=== PATIENT | male | born 1995 | race Caucasian/White ===

== ENCOUNTER → 2017-11-01 | Outpatient (CLI) | payer OTHER ==
[2017-08-07 10:42] VITALS: BMI 17.1
[~2017-11-01] MED LIST: BLOO-1511 MC; BLOO1STR16 MC; CHOL500016 PO; FLU60SYR30 IM ONLY; INSU100I30 SQ; INSU100I35 SQ; LANI SUBQ
== END ==
LOC: AMB 19:34
PROVIDERS: ATTEND Nurse Practitioner
DX: E11.9 Type 2 diabetes mellitus without complications (principal); E87.5 Hyperkalemia; R53.1 Weakness; R11.0 Nausea
CPT/HCPCS: A0425; A0427

== ENCOUNTER → 2017-11-20 | Outpatient (CLI) | payer OTHER ==
[2017-08-07 10:42] VITALS: BMI 17.1
[2017-11-20 10:22] LABS: PLATELET COUNT, AUTOMATED 316 K/uL (150-450)
== END ==
LOC: LAB 09:47
PROVIDERS: ATTEND Emergency Medicine
DX: E10.9 Type 1 diabetes mellitus without complications (principal)
CPT/HCPCS: 36415; 81001; 82040; 82247; 82310; 82374; 82435; 82565; 82947; 83036; 84075; 84132; 84155; 84295; 84450; 84460; 84520; 85025

== ENCOUNTER 2017-12-15 19:09 | Emergency (ER) | payer OTHER ==
[2017-08-07 10:42] VITALS: Ht 180.3 cm; Wt 49.9 kg
[~2017-12-15] VITALS: Ht 180.3 cm; Wt 49.9 kg
--- NOTE | 2017-12-15 19:20 | ER Report ---
History and Physical Time Seen By MD: 19:20 Hx. of Stated Complaint: SORE THROAT, DARK BLACK STOOL/DIARRHEA, NAUSEA, KIDNEY PAIN, HEADACHES HPI/ROS CHIEF COMPLAINT: Flulike symptoms, elevated blood sugar HISTORY OF PRESENT ILLNESS: 22-year-old male patient presents to emergency room with complaint of flulike symptoms and elevated blood sugar. Patient states that he has not been feeling well for the past 4 days. He states that he's not had any fevers but has had a persistent cough, body aches and chills. He states that he has not taken any medication for this. Patient also states that he is diabetic and his blood sugars been running high. He states that he had his blood sugar checked prior to coming in and the glucometer read HI. Patient states that he typically has been running in the 200s but recently is not been able to keep his blood sugar down. He denies having any nausea, vomiting or diarrhea. He states he's been doing a good job of staying hydrated. He states that he has significant headache. He states he rates it an 8 out of 10. He states that this is the worse headache that he's ever had. He states it does not seem to be going away. REVIEW OF SYSTEMS: Respiratory: As noted above. Cardiovascular: No chest pain, no palpitations. Gastrointestinal: No vomiting, no abdominal pain. Musculoskeletal: No back pain. Allergies: Coded Allergies: No Known Drug Allergies (Unverified , 11/01/17) Home Meds Active Scripts Insulin Glargine,Hum.rec.anlog (LANTUS SOLOSTAR) 100 Unit/1 Ml Insuln.pen, 60 UNIT SQ DAILY, #1 BOX 11 Refills Prov:SHIV SHAH MD 11/20/17 Blood Sugar Diagnostic (FREESTYLE LITE TEST STRIPS) 1 Each Strip, 1 EACH MC QID , #3 BOTTLE 11 Refills Prov:SHIV SHAH MD 10/27/17 Insulin Aspart (NOVOLOG FLEXPEN) 100 Unit/1 Ml Insuln.pen, 5-30 UNIT SQ TID, # 20 CART 11 Refills SLIDING SCALE Prov:SHIV SHAH MD 10/10/17 Cholecalciferol (Vitamin D3) (VITAMIN D3) 5,000 Unit Capsule, 5000 UNIT PO DAILY , #90 CAPSULE Prov:SHIV SHAH MD 09/25/17 Past Medical/Surgical History Patient has a past medical history of migraines, murmur, hypertension, type 1 diabetes, hypothyroidism, depression, PTSD. Patient denies any surgical history. Reviewed Nurses Notes: Yes Hx Smoking: Yes Smoking Status: Current: Every Day Smoker Exposure to Second Hand Smoke?: Yes Hx Substance Use Disorder: No Hx Alcohol Use: No Constitutional Vital Sign - Last 24 Hours 12/15/17 12/15/17 12/15/17 12/15/17 19:13 19:14 19:24 19:39 Temp 98.0 Pulse 101 113 97 Resp 20 B/P (MAP) 139/102 139/102 (114) Pulse Ox 92 98 97 O2 Delivery Room Air 12/15/17 12/15/17 12/15/17 12/15/17 19:54 19:58 20:07 20:09 Pulse 94 94 Resp 21 B/P (MAP) 127/86 (100) 125/99 (108) Pulse Ox 97 98 12/15/17 12/15/17 12/15/17 12/15/17 20:24 20:30 20:39 20:54 Pulse 91 95 88 Resp 16 43 16 B/P (MAP) 136/98 (111) Pulse Ox 99 96 97 12/15/17 12/15/17 12/15/17 12/15/17 21:00 21:05 21:20 21:30 Pulse ??? 93 Resp 18 B/P (MAP) 146/95 (112) 114/86 (95) Pulse Ox 96 12/15/17 12/15/17 12/15/17 12/15/17 21:35 21:50 22:00 22:05 Pulse 92 90 87 Resp 14 16 9 B/P (MAP) 126/97 (107) Pulse Ox 96 96 99 Intake and Output 12/15/17 12/15/17 12/16/17 15:00 23:00 07:00 Intake Total 2000 ml Balance 2000 ml Physical Exam General Appearance: The patient is alert, has no immediate need for airway protection and no current signs of toxicity. ENT: Tympanic membranes are pearly-benton, auditory canals are patent, mucous membranes are moist. Respiratory: Chest is non tender, lungs are clear to auscultation. Cardiac: regular rate and rhythm Gastrointestinal: Abdomen is soft and non tender, no masses, bowel sounds normal. Musculoskeletal: Neck: Neck is supple and non tender. Extremities have full range of motion and are non tender. Skin: No rashes or lesions. DIFFERENTIAL DIAGNOSIS: After history and physical exam differential diagnosis was considered for DKA, hyperglycemia, viral syndrome, pneumonia, influenza. Medical Decision Making Data Points Result Diagram: 12/15/17200112/15/172001 Laboratory Hematology Test 12/15/17 19:15 12/15/17 20:02 12/15/17 20:15 12/15/17 21:31 Influenza Virus Type A (PCR) Negative (NEGATIVE) Influenza Virus Type B (PCR) Negative (NEGATIVE) Group A Streptococcus Screen Negative (NEGATIVE) Red Blood Count 5.69 M/uL (4.00-5.60) Mean Corpuscular Volume 79.9 fL (80.0-96.0) Mean Corpuscular Hemoglobin 28.2 pg (26.0-33.0) Mean Corpuscular Hemoglobin Concent 35.3 g/dL (32.0-36.0) Red Cell Distribution Width 12.4 % (11.5-14.5) Mean Platelet Volume 7.5 fL (7.2-11.1) Neutrophils (%) (Auto) 55.3 % (39.4-72.5) Lymphocytes (%) (Auto) 34.8 % (17.6-49.6) Monocytes (%) (Auto) 6.7 % (4.1-12.4) Eosinophils (%) (Auto) 2.2 % (0.4-6.7) Basophils (%) (Auto) 1.0 % (0.3-1.4) Nucleated RBC Relative Count (auto) 0.1 /100WBC Neutrophils # (Auto) 3.1 K/uL (2.0-7.4) Lymphocytes # (Auto) 1.9 K/uL (1.3-3.6) Monocytes # (Auto) 0.4 K/uL (0.3-1.0) Eosinophils # (Auto) 0.1 K/uL (0.0-0.5) Basophils # (Auto) 0.1 K/uL (0.0-0.1) Nucleated RBC Absolute Count (auto) 0.01 K/uL Urine Color Straw Urine Clarity Clear Urine pH 5.0 pH (4.8-9.5) Urine Specific Brutus 1.039 Urine Protein Negative mg/dL (NEGATIVE) Urine Glucose (UA) 500 mg/dL (NEGATIVE) Urine Ketones 20 mg/dL (NEGATIVE) Urine Blood Negative (NEGATIVE) Urine Nitrite Negative (NEGATIVE) Urine Bilirubin Negative (NEGATIVE) Urine Urobilinogen Negative mg/dL (0.2-1.9) Urine Leukocyte Esterase Negative (NEGATIVE) Urine RBC <1 /HPF (0-2/HPF) Urine WBC None /HPF (0-5/HPF) Urine Squamous Epithelial Cells Few /LPF (</=FEW) Urine Bacteria Negative /HPF (NONE-FEW) Urine Mucus None /HPF (NONE-FEW) Sodium Level 132 mmol/L (137-145) Potassium Level 4.1 mmol/L (3.5-5.0) Chloride Level 98 mmol/L (98-107) Carbon Dioxide Level 21 mmol/L (22-30) Blood Urea Nitrogen 16 mg/dl (9-21) Creatinine 0.60 mg/dl (0.66-1.25) Glomerular Filtration Rate Calc > 60.0 Random Glucose 518 mg/dl (75-110) Osmolality 302 mOSM/K (275-295) Calcium Level 9.0 mg/dl (8.4-10.2) Total Bilirubin 1.7 mg/dl (0.2-1.3) Aspartate Amino Transf (AST/SGOT) 19 U/L (0-35) Alanine Aminotransferase (ALT/SGPT) 31 U/L (0-56) Alkaline Phosphatase 135 U/L (0-126) Total Protein 6.5 gm/dl (6.3-8.2) Albumin 3.8 g/dl (3.5-5.0) Urine Opiates Screen Negative Urine Barbiturates Screen Negative Ur Tricyclic Antidepressants Screen Negative Urine Phencyclidine Screen Negative Urine Amphetamines Screen Negative Urine Benzodiazepines Screen Negative Urine Cocaine Screen Negative Urine Cannabinoids Screen Negative Blood Gas Puncture Site Right radial Blood Gas Patient Temperature Unknown DEGREES Arterial Blood pH 7.47 (7.35-7.45) Arterial Blood Partial Pressure CO2 < 25 mmHg (32-37) Arterial Blood Partial Pressure O2 82 mmHg (60-80) Arterial Blood HCO3 18 mmol/L (20-26) Arterial Blood Oxygen Saturation 97 % (92-100) Arterial Blood Base Excess -6.0 mmol/L Bryson Test Acceptable Oxygen Liters/Minute Room air Whole Blood Glucose 247 mg/DL (75-110) Test 12/15/17 22:03 Acetone, Qualitative Negative Chemistry Test 12/15/17 19:15 12/15/17 20:02 12/15/17 20:15 12/15/17 21:31 Influenza Virus Type A (PCR) Negative (NEGATIVE) Influenza Virus Type B (PCR) Negative (NEGATIVE) Group A Streptococcus Screen Negative (NEGATIVE) White Blood Count 5.5 k/uL (4.5-11.0) Red Blood Count 5.69 M/uL (4.00-5.60) Hemoglobin 16.0 g/dL (14.0-18.0) Hematocrit 45.4 % (42.0-52.0) Mean Corpuscular Volume 79.9 fL (80.0-96.0) Mean Corpuscular Hemoglobin 28.2 pg (26.0-33.0) Mean Corpuscular Hemoglobin Concent 35.3 g/dL (32.0-36.0) Red Cell Distribution Width 12.4 % (11.5-14.5) Platelet Count 311 K/uL (150-450) Mean Platelet Volume 7.5 fL (7.2-11.1) Neutrophils (%) (Auto) 55.3 % (39.4-72.5) Lymphocytes (%) (Auto) 34.8 % (17.6-49.6) Monocytes (%) (Auto) 6.7 % (4.1-12.4) Eosinophils (%) (Auto) 2.2 % (0.4-6.7) Basophils (%) (Auto) 1.0 % (0.3-1.4) Nucleated RBC Relative Count (auto) 0.1 /100WBC Neutrophils # (Auto) 3.1 K/uL (2.0-7.4) Lymphocytes # (Auto) 1.9 K/uL (1.3-3.6) Monocytes # (Auto) 0.4 K/uL (0.3-1.0) Eosinophils # (Auto) 0.1 K/uL (0.0-0.5) Basophils # (Auto) 0.1 K/uL (0.0-0.1) Nucleated RBC Absolute Count (auto) 0.01 K/uL Urine Color Straw Urine Clarity Clear Urine pH 5.0 pH (4.8-9.5) Urine Specific Brutus 1.039 Urine Protein Negative mg/dL (NEGATIVE) Urine Glucose (UA) 500 mg/dL (NEGATIVE) Urine Ketones 20 mg/dL (NEGATIVE) Urine Blood Negative (NEGATIVE) Urine Nitrite Negative (NEGATIVE) Urine Bilirubin Negative (NEGATIVE) Urine Urobilinogen Negative mg/dL (0.2-1.9) Urine Leukocyte Esterase Negative (NEGATIVE) Urine RBC <1 /HPF (0-2/HPF) Urine WBC None /HPF (0-5/HPF) Urine Squamous Epithelial Cells Few /LPF (</=FEW) Urine Bacteria Negative /HPF (NONE-FEW) Urine Mucus None /HPF (NONE-FEW) Glomerular Filtration Rate Calc > 60.0 Osmolality 302 mOSM/K (275-295) Calcium Level 9.0 mg/dl (8.4-10.2) Total Bilirubin 1.7 mg/dl (0.2-1.3) Aspartate Amino Transf (AST/SGOT) 19 U/L (0-35) Alanine Aminotransferase (ALT/SGPT) 31 U/L (0-56) Alkaline Phosphatase 135 U/L (0-126) Total Protein 6.5 gm/dl (6.3-8.2) Albumin 3.8 g/dl (3.5-5.0) Urine Opiates Screen Negative Urine Barbiturates Screen Negative Ur Tricyclic Antidepressants Screen Negative Urine Phencyclidine Screen Negative Urine Amphetamines Screen Negative Urine Benzodiazepines Screen Negative Urine Cocaine Screen Negative Urine Cannabinoids Screen Negative Blood Gas Puncture Site Right radial Blood Gas Patient Temperature Unknown DEGREES Arterial Blood pH 7.47 (7.35-7.45) Arterial Blood Partial Pressure CO2 < 25 mmHg (32-37) Arterial Blood Partial Pressure O2 82 mmHg (60-80) Arterial Blood HCO3 18 mmol/L (20-26) Arterial Blood Oxygen Saturation 97 % (92-100) Arterial Blood Base Excess -6.0 mmol/L Bryson Test Acceptable Oxygen Liters/Minute Room air Whole Blood Glucose 247 mg/DL (75-110) Test 12/15/17 22:03 Acetone, Qualitative Negative Toxicology Test 12/15/17 20:02 12/15/17 22:03 Urine Opiates Screen Negative Urine Barbiturates Screen Negative Ur Tricyclic Antidepressants Screen Negative Urine Phencyclidine Screen Negative Urine Amphetamines Screen Negative Urine Benzodiazepines Screen Negative Urine Cocaine Screen Negative Urine Cannabinoids Screen Negative Acetone, Qualitative Negative Urinalysis Test 12/15/17 20:02 Urine Color Straw Urine Clarity Clear Urine pH 5.0 pH (4.8-9.5) Urine Specific Brutus 1.039 Urine Protein Negative mg/dL (NEGATIVE) Urine Glucose (UA) 500 mg/dL (NEGATIVE) Urine Ketones 20 mg/dL (NEGATIVE) Urine Blood Negative (NEGATIVE) Urine Nitrite Negative (NEGATIVE) Urine Bilirubin Negative (NEGATIVE) Urine Urobilinogen Negative mg/dL (0.2-1.9) Urine Leukocyte Esterase Negative (NEGATIVE) Urine RBC <1 /HPF (0-2/HPF) Urine WBC None /HPF (0-5/HPF) Urine Squamous Epithelial Cells Few /LPF (</=FEW) Urine Bacteria Negative /HPF (NONE-FEW) Urine Mucus None /HPF (NONE-FEW) EKG/Imaging Imaging HEAD CT: Indication: Persistent headache. Technique: Contiguous axial sections were obtained from the base to the vertex without contrast enhancement. One of the following dose optimization techniques was utilized in the performance of this exam: Automated exposure control; adjustment of the mA and/ or kV according to the patient's size; or use of an iterative reconstruction technique. Specific details can be referenced in the facility's radiology CT exam operational policy. Comparison: None. Findings: There is no evidence of intra-axial or extra-axial hemorrhage. No focal areas of decreased or increased attenuation are identified. There is no evidence of mass, edema, or shift of the midline structures. The size, shape, and configuration of the ventricular system are normal. The skeletal structures are intact and unremarkable. There is no evidence of fracture or other acute deformity. The visualized paranasal sinuses and mastoid air cells are clear. Impression: Unremarkable unenhanced head CT. Report Dictated By: Cholo Lainez MD at 12/15/2017 9:47 PM Report E-Signed By: Cholo Lainez MD at 12/15/2017 9:49 PM CHEST: Indication: Cough. Technique: Frontal and lateral views were obtained. Comparison: None. Skeletal and soft tissue structures: Intact and unremarkable. Heart and mediastinum: Within normal limits. Lung ordaz: Well-expanded and clear. No focal or diffuse opacities. Pleural spaces: Unremarkable. Impression: No acute process. Report Dictated By: Cholo Lainez MD at 12/15/2017 9:35 PM Report E-Signed By: Cholo Lainez MD at 12/15/2017 9:36 PM ED Course/Re-evaluation ED Course Patient was admitted to exam room, history and physical were obtained. Differential diagnoses were considered. A CBC, CMP, urinalysis, drug screen, acetone, osmolality, chest x-ray and CT scan of the head were done. Patient had an elevated blood sugar of 513, urinalysis showed 500 glucose. CBC and CMP were unremarkable except for the elevated blood sugar. An ABG was done which showed the patient was slightly alkalotic. His acetone was moderate initially and his osmolality was 302. Patient was given a liter of normal saline, he also received 10 units of regular insulin IV. Approximately 30 minutes after the insulin his blood sugar was rechecked. He is 247 at that time. Patient received a second liter of normal saline. We will recheck his acetone at that time which was negative. Patient is complaining about headache and so CT scan of the head was done which was negative. Patient was treated with Toradol and on reevaluation patient states he has no headache at this time. Chest x-ray was done which was also negative. I would patient was likely hyperglycemic secondary to stress from a viral illness. I discussed this with the patient and his friends and they verbalized understanding and agreement. We'll go ahead and discharge him home at this time. He is to keep a close eye on his blood sugar for the next several days. He is follow-up with Dr. Shah early next week. Patient verbalized understanding and agreement with plan. Decision to Disposition Date: Dec 15, 2017 Decision to Disposition Time: 22:35 Depart Departure Latest Vital Signs Vital Signs Date Time Temp Pulse Resp B/P (MAP) Pulse Ox O2 Delivery O2 Flow Rate FiO2 12/15/17 22:05 87 9 99 12/15/17 22:00 126/97 (107) 12/15/17 19:13 98.0 Room Air Impression: Primary Impression: Viral syndrome Additional Impressions: Headache Hyperglycemia Condition: Improved Disposition: HOME OR SELF-CARE Referrals: SHIV SHAH MD (PCP) Patient Instructions: Viral Syndrome (ED) Additional Instructions: Increase fluid intake. Get plenty of rest. Limit activity by how you are feeling. Follow up with Dr. Shah early next week. Keep a close eye on your blood sugars. Return to the ER if condition worsens. Continue with your current medications. Problem Qualifiers Additional Impressions: Headache Headache type: unspecified Headache chronicity pattern: acute headache Intractability: not intractable Qualified Codes: R51 - Headache ANJELICA JOEL Dec 15, 2017 19:20
[2017-12-15] MEDS ORDERED: NS(*) 0.9% 1000 ML BAG 1,000 ML IV ONE ×2 (19:29→21:00)
[2017-12-15] MEDS ORDERED: INSU HUM REG 100 U/ML(ER ONLY) 10 ML VIAL IV ONE (20:15)
[2017-12-15 20:16] LABS: PLATELET COUNT, AUTOMATED 311 K/uL (150-450)
[2017-12-15] MEDS ORDERED: INSU HUM REG 100 U/ML(ER ONLY) 10 ML VIAL ONE (20:39)
--- NOTE | 2017-12-15 21:40 | RADIOLOGY IMAGING REPORT ---
FACILITY: [facility] - [place] PATIENT NAME: Zak Wynn : 1995 MR: [id number] V: [id number] EXAM DATE: ORDERING PHYSICIAN: ANJELICA JOEL TECHNOLOGIST: Location: [facility] Patient: Zak Wynn : 1995 Visit/Account:[id number] Date of Sevice: 12/15/2017 CHEST: Indication: Cough. Technique: Frontal and lateral views were obtained. Comparison: None. Skeletal and soft tissue structures: Intact and unremarkable. Heart and mediastinum: Within normal limits. Lung ordaz: Well-expanded and clear. No focal or diffuse opacities. Pleural spaces: Unremarkable. Impression: No acute process. Report Dictated By: Cholo Lainez MD at 12/15/2017 9:35 PM Report E-Signed By: Cholo Lainez MD at 12/15/2017 9:36 PM WSN:[id number]
--- NOTE | 2017-12-15 21:53 | RADIOLOGY IMAGING REPORT ---
[place] [facility] [place] NAME: Zak Wynn : 1995 MR: [id number] V: [id number] EXAM DATE: ORDERING PHYSICIAN: ANJELICA JOEL [place]CHN[place]: [place] [facility] [place] Zak [place] : 1995 Visit/Account:[id number] Date of Sevice: 12/15/[address]: Indication: Persistent headache. Technique: Contiguous axial sections were obtained from the base to the vertex without contrast enhan cement. One of the following dose optimization techniques was utilized in the performance of this exam: Autom ated exposure control; adjustment of the mA and/or kV according to the patient's size; or use of an i terative reconstruction technique. Specific details can be referenced in the facility's radiology CT exam operational policy. Comparison: None. Findings: There is no evidence of intra-axial or extra-axial hemorrhage. No focal areas of decreased or increased attenuation are identified. There is no evidence of mass, edema, or shift of the midline structures. The size, shape, and configuration of the ventricular system are normal. The skeletal st ructures are intact and unremarkable. There is no evidence of fracture or other acute deformity. The visualized paranasal sinuses and mastoid air cells are clear. Impression: Unremarkable unenhanced head CT. Report Dictated By: Cholo Lainez MD at 12/15/2017 9:47 PM Report E-Signed By: Cholo Lainez MD at 12/15/2017 9:49 PM WSN:[id number]
[2017-12-15] MEDS ORDERED: KETOROLAC 30 MG/ML VIAL IVP ONE (21:55)
[2017-12-15 22:00] VITALS: BP 126/97
== END 2017-12-15 22:44 | disposition home or self-care (01) ==
LOC: ER 19:23
DX: B34.9 Viral infection, unspecified (principal); R51 Headache; E10.65 Type 1 diabetes mellitus with hyperglycemia
CPT/HCPCS: 36415; 36416; 36600; 70450; 71046; 80305; 81001; 82009; 82803; 82948; 83930; 85025; 87081; 87502; 87880; 96361; 96374; 96375; 99284; J1815; J1885; J7030; 82040; 82247; 82310; 82374; 82435; 82565; 82947; 84075; 84132; 84155; 84295; 84450; 84460; 84520

== ENCOUNTER 2017-12-21 19:07 | Emergency (ER) | payer OTHER ==
[2017-08-07 10:42] VITALS: Wt 50.8 kg
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
[2017-12-21 20:30] VITALS: BP 132/82
== END 2017-12-21 20:44 | disposition home or self-care (01) ==
LOC: ER 19:14
DX: S06.0X0A Concussion without loss of consciousness, initial encounter (principal); S16.1XXA Strain of muscle, fascia and tendon at neck level, initial encounter; E11.65 Type 2 diabetes mellitus with hyperglycemia; V87.7XXA Person injured in collision between other specified motor vehicles (traffic), initial encounter
CPT/HCPCS: 36416; 70450; 72125; 82948; 99283

== ENCOUNTER 2018-01-08 21:42 | Emergency (ER) | payer OTHER ==
[2017-08-07 10:42] VITALS: Wt 50.8 kg
--- NOTE | 2018-01-08 21:51 | ER Report ---
History and Physical Time Seen By MD: 21:50 HPI/ROS CHIEF COMPLAINT: Vomiting,? DKA HISTORY OF PRESENT ILLNESS: 22-year-old male presents ambulatory to the ER complaining of abdominal pain, vomiting for 6-8 hours. Pain in his legs or his neuropathy is. Patient's wondering if he has DKA or pancreatitis. Patient denies chest pain, shortness of breath, fever or chills. REVIEW OF SYSTEMS: Respiratory: No cough, no dyspnea. Cardiovascular: No chest pain, no palpitations. Gastrointestinal: As above Musculoskeletal: No back pain. Allergies: Coded Allergies: No Known Drug Allergies (Unverified , 11/01/17) Home Meds Active Scripts Ondansetron (ZOFRAN ODT) 4 Mg Tab.rapdis, 4 MG PO Q6H Y for NAUSEA/VOMITING, # 20 TAB.SILVIA Prov:THOMPSON GARDUNO DO 01/08/18 Insulin Glargine,Hum.rec.anlog (LANTUS SOLOSTAR) 100 Unit/1 Ml Insuln.pen, 60 UNIT SQ DAILY, #1 BOX 11 Refills Prov:SHIV PAZ MD 11/20/17 Blood Sugar Diagnostic (FREESTYLE LITE TEST STRIPS) 1 Each Strip, 1 EACH MC QID , #3 BOTTLE 11 Refills Prov:SHIV PAZ MD 10/27/17 Insulin Aspart (NOVOLOG FLEXPEN) 100 Unit/1 Ml Insuln.pen, 5-30 UNIT SQ TID, # 20 CART 11 Refills SLIDING SCALE Prov:SHIV PAZ MD 10/10/17 Cholecalciferol (Vitamin D3) (VITAMIN D3) 5,000 Unit Capsule, 5000 UNIT PO DAILY , #90 CAPSULE Prov:SHIV PAZ MD 09/25/17 Reviewed Nurses Notes: Yes Old Medical Records Reviewed: Yes Hx Smoking: Yes Smoking Status: Current: Every Day Smoker Exposure to Second Hand Smoke?: Yes Hx Substance Use Disorder: No Hx Alcohol Use: Yes Constitutional Vital Sign - Last 24 Hours 01/08/18 01/08/18 01/08/18 01/08/18 22:14 22:14 22:27 22:30 Temp 98.6 Pulse 104 106 Resp 20 B/P (MAP) 119/95 119/95 (103) 126/102 (110) Pulse Ox 93 99 O2 Delivery Room Air 01/08/18 01/08/18 01/08/18 01/08/18 22:42 22:57 23:00 23:12 Pulse 104 106 98 B/P (MAP) 126/97 (107) Pulse Ox 97 97 99 01/08/18 01/08/18 01/08/18 01/08/18 23:17 23:30 23:32 23:47 Pulse 97 107 109 B/P (MAP) 139/107 (118) Pulse Ox 97 97 97 01/09/18 00:00 B/P (MAP) 130/96 (107) Physical Exam General Appearance: The patient is alert, has no immediate need for airway protection and no current signs of toxicity. Mild distress, slightly pale appearing, skin warm and dry HEENT: Pupils equal and round no injection. Oropharynx without redness or exudate, mucous membranes are moist Respiratory: Chest is non tender, lungs are clear to auscultation. Cardiac: regular rate and rhythm Gastrointestinal: Abdomen is soft and non tender, no masses, bowel sounds normal. Musculoskeletal: Neck: Neck is supple and non tender. Extremities have full range of motion and are non tender. Skin: No rashes or lesions. DIFFERENTIAL DIAGNOSIS: After history and physical exam differential diagnosis was considered for abdominal pain including but not limited to appendicitis, cholecystitis,diabetic ketoacidosis, gastroenteritis, food poisoning, gastritis and urinary tract infection. Medical Decision Making Data Points Result Diagram: 01/08/18222401/08/182224 Laboratory Hematology Test 01/08/18 00:00 01/08/18 22:25 Lipase 55 U/L (23-300) Red Blood Count 6.69 M/uL (4.00-5.60) Mean Corpuscular Volume 80.0 fL (80.0-96.0) Mean Corpuscular Hemoglobin 27.4 pg (26.0-33.0) Mean Corpuscular Hemoglobin Concent 34.2 g/dL (32.0-36.0) Red Cell Distribution Width 12.9 % (11.5-14.5) Mean Platelet Volume 7.7 fL (7.2-11.1) Neutrophils (%) (Auto) 51.0 % (39.4-72.5) Lymphocytes (%) (Auto) 41.1 % (17.6-49.6) Monocytes (%) (Auto) 5.9 % (4.1-12.4) Eosinophils (%) (Auto) 1.0 % (0.4-6.7) Basophils (%) (Auto) 1.0 % (0.3-1.4) Nucleated RBC Relative Count (auto) 0.1 /100WBC Neutrophils # (Auto) 3.7 K/uL (2.0-7.4) Lymphocytes # (Auto) 3.0 K/uL (1.3-3.6) Monocytes # (Auto) 0.4 K/uL (0.3-1.0) Eosinophils # (Auto) 0.1 K/uL (0.0-0.5) Basophils # (Auto) 0.1 K/uL (0.0-0.1) Nucleated RBC Absolute Count (auto) 0.01 K/uL Blood Gas Patient Temperature Unknown DEGREES Venous Blood pH 7.35 (7.31-7.41) Venous Blood Partial Pressure CO2 45 mmHg Venous Blood Partial Pressure O2 < 35 mmHg Venous Blood HCO3 25 mmol/L Venous Blood Oxygen Saturation 40 % Venous Blood Base Excess -1 mmol/L Oxygen Liters/Minute Unknown Sodium Level 139 mmol/L (137-145) Potassium Level 3.7 mmol/L (3.5-5.0) Chloride Level 99 mmol/L (98-107) Carbon Dioxide Level 24 mmol/L (22-30) Blood Urea Nitrogen 15 mg/dl (9-21) Creatinine 0.60 mg/dl (0.66-1.25) Glomerular Filtration Rate Calc > 60.0 Random Glucose 331 mg/dl (75-110) Osmolality 305 mOSM/K (275-295) Calcium Level 9.7 mg/dl (8.4-10.2) Total Bilirubin 2.4 mg/dl (0.2-1.3) Aspartate Amino Transf (AST/SGOT) 22 U/L (0-35) Alanine Aminotransferase (ALT/SGPT) 33 U/L (0-56) Alkaline Phosphatase 126 U/L (0-126) Total Protein 8.1 gm/dl (6.3-8.2) Albumin 4.6 g/dl (3.5-5.0) Acetone, Qualitative Negative Chemistry Test 01/08/18 00:00 01/08/18 22:25 Lipase 55 U/L (23-300) White Blood Count 7.3 k/uL (4.5-11.0) Red Blood Count 6.69 M/uL (4.00-5.60) Hemoglobin 18.3 g/dL (14.0-18.0) Hematocrit 53.5 % (42.0-52.0) Mean Corpuscular Volume 80.0 fL (80.0-96.0) Mean Corpuscular Hemoglobin 27.4 pg (26.0-33.0) Mean Corpuscular Hemoglobin Concent 34.2 g/dL (32.0-36.0) Red Cell Distribution Width 12.9 % (11.5-14.5) Platelet Count 327 K/uL (150-450) Mean Platelet Volume 7.7 fL (7.2-11.1) Neutrophils (%) (Auto) 51.0 % (39.4-72.5) Lymphocytes (%) (Auto) 41.1 % (17.6-49.6) Monocytes (%) (Auto) 5.9 % (4.1-12.4) Eosinophils (%) (Auto) 1.0 % (0.4-6.7) Basophils (%) (Auto) 1.0 % (0.3-1.4) Nucleated RBC Relative Count (auto) 0.1 /100WBC Neutrophils # (Auto) 3.7 K/uL (2.0-7.4) Lymphocytes # (Auto) 3.0 K/uL (1.3-3.6) Monocytes # (Auto) 0.4 K/uL (0.3-1.0) Eosinophils # (Auto) 0.1 K/uL (0.0-0.5) Basophils # (Auto) 0.1 K/uL (0.0-0.1) Nucleated RBC Absolute Count (auto) 0.01 K/uL Blood Gas Patient Temperature Unknown DEGREES Venous Blood pH 7.35 (7.31-7.41) Venous Blood Partial Pressure CO2 45 mmHg Venous Blood Partial Pressure O2 < 35 mmHg Venous Blood HCO3 25 mmol/L Venous Blood Oxygen Saturation 40 % Venous Blood Base Excess -1 mmol/L Oxygen Liters/Minute Unknown Glomerular Filtration Rate Calc > 60.0 Osmolality 305 mOSM/K (275-295) Calcium Level 9.7 mg/dl (8.4-10.2) Total Bilirubin 2.4 mg/dl (0.2-1.3) Aspartate Amino Transf (AST/SGOT) 22 U/L (0-35) Alanine Aminotransferase (ALT/SGPT) 33 U/L (0-56) Alkaline Phosphatase 126 U/L (0-126) Total Protein 8.1 gm/dl (6.3-8.2) Albumin 4.6 g/dl (3.5-5.0) Acetone, Qualitative Negative Toxicology Test 01/08/18 22:25 Acetone, Qualitative Negative ED Course/Re-evaluation Clinical Indication for ER IV: Hydration, IV Access ED Course Patient was admitted to an examination room. H&P was done. The differential diagnosis was considered. Patient had a peripheral IV established. Diagnostic bloods were sent off. Patient was treated with IV fluid hydration and Zofran. His diagnostic studies returned with a slightly elevated. Blood glucose of 331. There is no evidence of diabetic ketoacidosis. There is no evidence of pancreatitis. Patient tolerates a by mouth challenge. Be discharged home on Zofran. He is advised to follow-up with primary care. He is frustrated with his previous caregiver and is seeking a new primary care provider. Decision to Disposition Date: Jan 08, 2018 Decision to Disposition Time: 22:59 Depart Departure Latest Vital Signs Vital Signs Date Time Temp Pulse Resp B/P (MAP) Pulse Ox O2 Delivery O2 Flow Rate FiO2 01/09/18 00:00 130/96 (107) 01/08/18 23:47 109 97 01/08/18 22:14 98.6 20 Room Air Impression: Primary Impression: Vomiting Additional Impressions: Abdominal pain DM type 1 (diabetes mellitus, type 1) Condition: Improved Disposition: HOME OR SELF-CARE Referrals: SHIV PAZ MD (PCP) LISA VEGA DO New Scripts Ondansetron (ZOFRAN ODT) 4 Mg Tab.rapdis 4 MG PO Q6H Y for NAUSEA/VOMITING, #20 TAB.SILVIA Prov: THOMPSON GARDUNO Monalisa FREEDMAN 01/08/18 Patient Instructions: Acute Nausea and Vomiting (ED), Diabetic Hyperglycemia ( ED) Additional Instructions: Follow-up with Dr. Vega within 3-5 days Problem Qualifiers Primary Impression: Vomiting Vomiting type: unspecified Vomiting Intractability: unspecified Nausea presence: unspecified Qualified Codes: R11.10 - Vomiting, unspecified Additional Impressions: Abdominal pain Abdominal location: generalized Qualified Codes: R10.84 - Generalized abdominal pain DM type 1 (diabetes mellitus, type 1) Diabetes mellitus complication status: with neurologic complications Diabetes mellitus complication detail: with unspecified neuropathy Qualified Codes: E10.40 - Type 1 diabetes mellitus with diabetic neuropathy, unspecified THOMPSON GARDUNO DO Jan 08, 2018 21:51
[2018-01-08] MEDS ORDERED: NS(*) 0.9% 1000 ML BAG 1,000 ML IV ONE (22:18)
[2018-01-08] MEDS ORDERED: ONDANSETRON 4 MG/2 ML VIAL IVP ONE (22:20)
[2018-01-08 22:34] LABS: PLATELET COUNT, AUTOMATED 327 K/uL (150-450)
[2018-01-08] MEDS ORDERED: ONDA4TAB PO (23:01)
[2018-01-08] MEDS ORDERED: ONDANSETRON 4 MG ODT TH SL ONE (23:05)
[2018-01-09] VITALS: BP 130/96
== END 2018-01-09 00:06 | disposition home or self-care (01) ==
LOC: ER 22:31
DX: R11.10 Vomiting, unspecified (principal); R10.9 Unspecified abdominal pain; E10.9 Type 1 diabetes mellitus without complications; Z79.4 Long term (current) use of insulin; F17.200 Nicotine dependence, unspecified, uncomplicated
CPT/HCPCS: 82009; 82803; 83690; 83930; 85025; 96361; 96374; 99284; J2405; J7030; S0119; 82040; 82247; 82310; 82374; 82435; 82565; 82947; 84075; 84132; 84155; 84295; 84450; 84460; 84520

== ENCOUNTER 2018-01-20 01:56 | Inpatient (IN) | payer OTHER ==
[~2018-01-20] VITALS: Ht 170.2 cm; Wt 50.8 kg
[~2018-01-20 01:56] MED LIST changes: +ONDA4TAB PO
--- NOTE | 2018-01-20 02:02 | ER Report ---
History and Physical Time Seen By MD: 02:01 HPI/ROS CHIEF COMPLAINT: Not eating, vomiting 1 HISTORY OF PRESENT ILLNESS: 22-year-old type I insulin-dependent diabetic. Presents ambulatory to the ER complaining of pain all over. He states he vomited once in the evening. He says he has not eaten in several days because of pain all over. Patient denies nausea and vomiting. He denies diarrhea. He denies fever or chills. He was told by his therapist to come to the ER for evaluation. Patient was seen here approximately 2 weeks ago on 01/08/18 and was advised to follow-up with his primary care physician which she has failed to do. He is apparently had a falling out with his primary care Dr Paz REVIEW OF SYSTEMS: Respiratory: No cough, no dyspnea. Cardiovascular: No chest pain, no palpitations. Gastrointestinal: No vomiting, no abdominal pain. Musculoskeletal: No back pain. Allergies: Coded Allergies: No Known Drug Allergies (Unverified , 01/20/18) Home Meds Active Scripts Ondansetron (ZOFRAN ODT) 4 Mg Tab.rapdis, 4 MG PO Q6H Y for NAUSEA/VOMITING, # 20 TAB.SILVIA Prov:LAUREENTHOMPSON Monalisa DO 01/08/18 Insulin Glargine,Hum.rec.anlog (LANTUS SOLOSTAR) 100 Unit/1 Ml Insuln.pen, 60 UNIT SQ DAILY, #1 BOX 11 Refills Prov:SHIV PAZ MD 11/20/17 Blood Sugar Diagnostic (FREESTYLE LITE TEST STRIPS) 1 Each Strip, 1 EACH MC QID , #3 BOTTLE 11 Refills Prov:SHIV PAZ MD 10/27/17 Insulin Aspart (NOVOLOG FLEXPEN) 100 Unit/1 Ml Insuln.pen, 5-30 UNIT SQ TID, # 20 CART 11 Refills SLIDING SCALE Prov:SHIV PAZ MD 10/10/17 Cholecalciferol (Vitamin D3) (VITAMIN D3) 5,000 Unit Capsule, 5000 UNIT PO DAILY , #90 CAPSULE Prov:SHIV PAZ MD 09/25/17 Past Medical/Surgical History Past Medical History Cardiovascular: Reports hx of: hypertension Psychiatric: Reports hx of: ADHD anxiety depression PTSD suicide attempt(s) (09/2016 overosed on insulin) Endocrine: Reports hx of: diabetes type 1 (diagnosed at 4 years old, hospitalized several times DKA) Reviewed Nurses Notes: Yes Old Medical Records Reviewed: Yes Hx Smoking: Yes Smoking Status: Current: Every Day Smoker Exposure to Second Hand Smoke?: Yes Hx Substance Use Disorder: No Hx Alcohol Use: Yes Constitutional Vital Sign - Last 24 Hours 01/20/18 01/20/18 01/20/18 01/20/18 02:01 02:02 02:11 02:26 Temp 98.4 Pulse 119 122 110 Resp 16 B/P (MAP) 124/95 (105) 124/95 Pulse Ox 95 92 95 O2 Delivery Room Air 01/20/18 01/20/18 01/20/18 01/20/18 02:32 02:41 02:56 03:00 Pulse 117 115 B/P (MAP) 141/114 (123) 136/99 (111) Pulse Ox 96 95 01/20/18 01/20/18 01/20/18 01/20/18 03:11 03:26 03:30 03:41 Pulse 116 112 111 B/P (MAP) 122/86 (98) Pulse Ox 96 97 96 01/20/18 01/20/18 01/20/18 01/20/18 03:41 03:56 04:00 04:05 Pulse 111 106 108 B/P (MAP) 120/87 (98) Pulse Ox 96 98 98 01/20/18 01/20/18 01/20/18 01/20/18 04:20 04:30 04:35 04:50 Pulse 115 112 105 B/P (MAP) 126/81 (96) Pulse Ox 97 97 96 01/20/18 01/20/18 05:00 05:05 Pulse 99 B/P (MAP) 119/81 (94) Pulse Ox 97 Physical Exam Vital signs stable, afebrile, pulse ox normal General Appearance: The patient is alert, has no immediate need for airway protection and no current signs of toxicity. Skin warm, dry, pink, no acute distress HEENT: Pupils equal and round no injection. Oropharynx with moist mucous membranes, no erythema or redness Respiratory: Chest is non tender, lungs are clear to auscultation. Cardiac: regular rate and rhythm Gastrointestinal: Abdomen is soft and non tender, no masses, bowel sounds normal. Musculoskeletal: Neck: Neck is supple and non tender. Extremities have full range of motion and are non tender. Skin: No rashes or lesions. DIFFERENTIAL DIAGNOSIS: After history and physical exam differential diagnosis was considered for abdominal pain including but not limited to appendicitis, cholecystitis, gastritis, DKA and urinary tract infection. Medical Decision Making Data Points Result Diagram: 01/20/1821901/20/18219 Laboratory Hematology Test 01/20/18 02:20 01/20/18 03:43 01/20/18 04:54 Red Blood Count 5.93 M/uL (4.00-5.60) Mean Corpuscular Volume 81.9 fL (80.0-96.0) Mean Corpuscular Hemoglobin 27.4 pg (26.0-33.0) Mean Corpuscular Hemoglobin Concent 33.4 g/dL (32.0-36.0) Red Cell Distribution Width 12.7 % (11.5-14.5) Mean Platelet Volume 7.8 fL (7.2-11.1) Neutrophils (%) (Auto) 56.6 % (39.4-72.5) Lymphocytes (%) (Auto) 34.7 % (17.6-49.6) Monocytes (%) (Auto) 6.8 % (4.1-12.4) Eosinophils (%) (Auto) 1.2 % (0.4-6.7) Basophils (%) (Auto) 0.7 % (0.3-1.4) Nucleated RBC Relative Count (auto) 0.0 /100WBC Neutrophils # (Auto) 4.0 K/uL (2.0-7.4) Lymphocytes # (Auto) 2.5 K/uL (1.3-3.6) Monocytes # (Auto) 0.5 K/uL (0.3-1.0) Eosinophils # (Auto) 0.1 K/uL (0.0-0.5) Basophils # (Auto) 0.1 K/uL (0.0-0.1) Nucleated RBC Absolute Count (auto) 0.00 K/uL Venous Blood pH 7.31 (7.31-7.41) Sodium Level 131 mmol/L (137-145) Potassium Level 4.0 mmol/L (3.5-5.0) Chloride Level 93 mmol/L (98-107) Carbon Dioxide Level 14 mmol/L (22-30) Blood Urea Nitrogen 22 mg/dl (9-21) Creatinine 0.70 mg/dl (0.66-1.25) Glomerular Filtration Rate Calc > 60.0 Random Glucose 620 mg/dl (75-110) Calcium Level 9.6 mg/dl (8.4-10.2) Total Bilirubin 2.3 mg/dl (0.2-1.3) Aspartate Amino Transf (AST/SGOT) 24 U/L (0-35) Alanine Aminotransferase (ALT/SGPT) 27 U/L (0-56) Alkaline Phosphatase 151 U/L (0-126) Total Protein 7.5 gm/dl (6.3-8.2) Albumin 4.6 g/dl (3.5-5.0) Amylase Level 62 U/L (0-110) Lipase 73 U/L (23-300) Urine Color Colorless Urine Clarity Clear Urine pH 5.0 pH (4.8-9.5) Urine Specific [place] 1.029 Urine Protein Negative mg/dL (NEGATIVE) Urine Glucose (UA) 500 mg/dL (NEGATIVE) Urine Ketones 80 mg/dL (NEGATIVE) Urine Blood Negative (NEGATIVE) Urine Nitrite Negative (NEGATIVE) Urine Bilirubin Negative (NEGATIVE) Urine Urobilinogen Negative mg/dL (0.2-1.9) Urine Leukocyte Esterase Negative (NEGATIVE) Urine RBC None /HPF (0-2/HPF) Urine WBC None /HPF (0-5/HPF) Urine Squamous Epithelial Cells None /LPF (</=FEW) Urine Bacteria Negative /HPF (NONE-FEW) Urine Mucus None /HPF (NONE-FEW) Whole Blood Glucose 281 mg/DL (75-110) Chemistry Test 01/20/18 02:20 01/20/18 03:43 01/20/18 04:54 White Blood Count 7.1 k/uL (4.5-11.0) Red Blood Count 5.93 M/uL (4.00-5.60) Hemoglobin 16.2 g/dL (14.0-18.0) Hematocrit 48.6 % (42.0-52.0) Mean Corpuscular Volume 81.9 fL (80.0-96.0) Mean Corpuscular Hemoglobin 27.4 pg (26.0-33.0) Mean Corpuscular Hemoglobin Concent 33.4 g/dL (32.0-36.0) Red Cell Distribution Width 12.7 % (11.5-14.5) Platelet Count 314 K/uL (150-450) Mean Platelet Volume 7.8 fL (7.2-11.1) Neutrophils (%) (Auto) 56.6 % (39.4-72.5) Lymphocytes (%) (Auto) 34.7 % (17.6-49.6) Monocytes (%) (Auto) 6.8 % (4.1-12.4) Eosinophils (%) (Auto) 1.2 % (0.4-6.7) Basophils (%) (Auto) 0.7 % (0.3-1.4) Nucleated RBC Relative Count (auto) 0.0 /100WBC Neutrophils # (Auto) 4.0 K/uL (2.0-7.4) Lymphocytes # (Auto) 2.5 K/uL (1.3-3.6) Monocytes # (Auto) 0.5 K/uL (0.3-1.0) Eosinophils # (Auto) 0.1 K/uL (0.0-0.5) Basophils # (Auto) 0.1 K/uL (0.0-0.1) Nucleated RBC Absolute Count (auto) 0.00 K/uL Venous Blood pH 7.31 (7.31-7.41) Glomerular Filtration Rate Calc > 60.0 Calcium Level 9.6 mg/dl (8.4-10.2) Total Bilirubin 2.3 mg/dl (0.2-1.3) Aspartate Amino Transf (AST/SGOT) 24 U/L (0-35) Alanine Aminotransferase (ALT/SGPT) 27 U/L (0-56) Alkaline Phosphatase 151 U/L (0-126) Total Protein 7.5 gm/dl (6.3-8.2) Albumin 4.6 g/dl (3.5-5.0) Amylase Level 62 U/L (0-110) Lipase 73 U/L (23-300) Urine Color Colorless Urine Clarity Clear Urine pH 5.0 pH (4.8-9.5) Urine Specific [place] 1.029 Urine Protein Negative mg/dL (NEGATIVE) Urine Glucose (UA) 500 mg/dL (NEGATIVE) Urine Ketones 80 mg/dL (NEGATIVE) Urine Blood Negative (NEGATIVE) Urine Nitrite Negative (NEGATIVE) Urine Bilirubin Negative (NEGATIVE) Urine Urobilinogen Negative mg/dL (0.2-1.9) Urine Leukocyte Esterase Negative (NEGATIVE) Urine RBC None /HPF (0-2/HPF) Urine WBC None /HPF (0-5/HPF) Urine Squamous Epithelial Cells None /LPF (</=FEW) Urine Bacteria Negative /HPF (NONE-FEW) Urine Mucus None /HPF (NONE-FEW) Whole Blood Glucose 281 mg/DL (75-110) Urinalysis Test 01/20/18 03:43 Urine Color Colorless Urine Clarity Clear Urine pH 5.0 pH (4.8-9.5) Urine Specific [place] 1.029 Urine Protein Negative mg/dL (NEGATIVE) Urine Glucose (UA) 500 mg/dL (NEGATIVE) Urine Ketones 80 mg/dL (NEGATIVE) Urine Blood Negative (NEGATIVE) Urine Nitrite Negative (NEGATIVE) Urine Bilirubin Negative (NEGATIVE) Urine Urobilinogen Negative mg/dL (0.2-1.9) Urine Leukocyte Esterase Negative (NEGATIVE) Urine RBC None /HPF (0-2/HPF) Urine WBC None /HPF (0-5/HPF) Urine Squamous Epithelial Cells None /LPF (</=FEW) Urine Bacteria Negative /HPF (NONE-FEW) Urine Mucus None /HPF (NONE-FEW) ED Course/Re-evaluation Clinical Indication for ER IV: Hydration, IV Access ED Course Patient was admitted to an examination room. H&P was done. The dental diagnoses was considered. On conical examination, patient appears quite well. His vital signs are stable. He has no increased respiratory rate. Peripheral IV is established. Diagnostic studies are sent off. His glucose returns at 640. His bicarbonate is down to 14. Urinalysis shows ketones. His venous pH is 7.3. Patient's treated with IV fluid hydration 3 L of normal saline. He is given 10 units of regular insulin IV. After approximately one hour. His repeat glucose is down to 81. He is feeling better but still feeling quite ill. He would like to be admitted. 01/20/2018 5:11:33 am case was discussed with Dr. Monalisa Vera who accepts the patient for admission. Decision to Disposition Date: Jan 20, 2018 Decision to Disposition Time: 02:22 Depart Departure Latest Vital Signs Vital Signs Date Time Temp Pulse Resp B/P (MAP) Pulse Ox O2 Delivery O2 Flow Rate FiO2 01/20/18 05:05 99 97 01/20/18 05:00 119/81 (94) 01/20/18 02:02 98.4 16 Room Air Impression: Primary Impression: DKA, type 1 Additional Impressions: DM type 1 (diabetes mellitus, type 1) Vomiting Abdominal pain Condition: Improved Disposition: Admitted from ER Referrals: SHIV PAZ MD (PCP) Problem Qualifiers Primary Impression: DKA, type 1 Diabetes mellitus complication detail: without coma Qualified Codes: E10.10 - Type 1 diabetes mellitus with ketoacidosis without coma Additional Impressions: DM type 1 (diabetes mellitus, type 1) Diabetes mellitus complication status: with neurologic complications Diabetes mellitus complication detail: with unspecified neuropathy Qualified Codes: E10.40 - Type 1 diabetes mellitus with diabetic neuropathy, unspecified Vomiting Vomiting type: unspecified Vomiting Intractability: unspecified Nausea presence: unspecified Qualified Codes: R11.10 - Vomiting, unspecified Abdominal pain Abdominal location: upper abdomen, unspecified Qualified Codes: R10.10 - Upper abdominal pain, unspecified THOMPSON GARDUNO DO Jan 20, 2018 02:02
[2018-01-20] MEDS ORDERED: NS(*) 0.9% 1000 ML BAG 1,000 ML IV ONE ×2 (02:07→03:20)
[2018-01-20] MEDS ORDERED: fentaNYL CITR 100 MCG/2 ML AMP IVP ONE (02:10)
[2018-01-20] MEDS ORDERED: PROMETHAZINE 25 MG/ML 1 ML AMP IVP ONE (02:10)
[2018-01-20] MEDS ORDERED: ONDANSETRON 4 MG/2 ML VIAL IVP ONE (02:10)
[2018-01-20 02:47] LABS: PLATELET COUNT, AUTOMATED 314 K/uL (150-450)
[2018-01-20] MEDS ORDERED: INSU HUM REG 100 U/ML(ER ONLY) 10 ML VIAL IVP ONE (03:20)
[2018-01-20] MEDS ORDERED: NS 0.45%(*) 1000 ML BAG 1,000 ML IV ONE (04:15)
[2018-01-20 05:33] VITALS: BP 138/98
[2018-01-20] MEDS ORDERED: INFLUENZA VIRUS VAC 0.5 ML SYR IM ONLY ONE (06:05)
[2018-01-20] MEDS ORDERED: ACETAMINOPHEN 325 MG TAB PO PRN (06:05)
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
[2018-01-20] MEDS ORDERED: ST.300CA17 PO (06:32)
[2018-01-20 08:56] VITALS: BP 133/96
[2018-01-20] MEDS: INSULIN GLARGINE 100 U/ML 3 ML PEN SUBQ SCH ×2 (08:59→20:15)
[2018-01-20] MEDS: INSULIN HUM LISPRO 100 UN/ML 3 ML VIAL SUBQ PRN ×3 (09:00→20:04)
[2018-01-20 11:20] VITALS: Ht 170.2 cm; Wt 50.8 kg
[2018-01-20 12:08] VITALS: BP 127/93
--- NOTE | 2018-01-20 12:45 | HISTORY AND PHYSICAL ---
DATE OF ADMISSION: January 20, 2018 Please refer to psychiatric consultation. MTDD
[2018-01-20] MEDS: NS(*) 0.9% 1000 ML BAG 1,000 ML IV PRN (13:42)
[2018-01-20 20:10] VITALS: BP 128/82
[2018-01-20] MEDS ORDERED: MIRTAZAPINE 15 MG TAB PO SCH (21:00)
[2018-01-20 22:49] VITALS: BP 122/77
[2018-01-21] MEDS: NS(*) 0.9% 1000 ML BAG 1,000 ML IV PRN ×2 (00:02→07:34)
[2018-01-21 06:15] LABS: PLATELET COUNT, AUTOMATED 282 K/uL (150-450)
[2018-01-21 08:15] VITALS: BP 124/79
[2018-01-21] MEDS: INSULIN GLARGINE 100 U/ML 3 ML PEN SUBQ SCH (08:20)
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
[2018-01-21] MEDS ORDERED: ONDANSETRON 4 MG ODT TABDP SL PRN (11:45)
[2018-01-21] MEDS: INSULIN HUM LISPRO 100 UN/ML 3 ML VIAL SUBQ PRN (12:21)
[2018-01-21] MEDS ORDERED: MIRT-22 PO (13:34)
[2018-01-21] MEDS ORDERED: INSU100I30 SUBQ (13:34)
[2018-01-21] MEDS ORDERED: INSU100V24 SUBQ (13:49)
--- NOTE | 2018-01-21 13:50 | Hospitalist Depart ---
Discharge Summary Reason for Hosp/Final Diag: (1) Diabetic ketoacidosis Status: Acute Hospital Course & Plan: It appears he has mild DKA with some associated dehydration. Will admit for IV fluids, frequent glucose monitoring, insulin therapy, close monitoring of his electrolytes. I am a little suspect of his compliance with therapy given his very high HgbA1c and reported very high insulin requirement (90+ units of long acting insulin daily). Will place him on Lantus 10 units SQ BID and SSI. Watch closely. (2) Dehydration Status: Acute Hospital Course & Plan: Will give generous IV fluids. Watch labs. (3) DM type 1 (diabetes mellitus, type 1) Status: Chronic Hospital Course & Plan: Will re-check HgbA1c. Start insulin therapy as noted above. (4) PTSD (post-traumatic stress disorder) Status: Chronic Hospital Course & Plan: His psychiatric illness may have a significant impact on his diabetes management. Will have psychiatry see. (5) Depression Status: Chronic Hospital Course & Plan: He is not currently on any medication. Will have psychiatry see. Departure Weight (Pounds): 112 Result Diagram: 01/21/18 0501/21/18 0555 Discharge Instructions Home Meds Active Scripts Insulin Lispro (HUMALOG) 100 Unit/1 Ml Vial, 1-5 UNIT SUBQ SS Y for SLIDING SCALE INSULIN, #1 BOX For glucose of 150-200 give 1 u 201-250 give 2 u 251-300 give 3 u 301-350 give 4 u > 350 give 5 u If glucose is 400 or greater, call your practitioner. Prov:MALACHI MARQUEZ MD 01/21/18 Mirtazapine (MIRTAZAPINE) 15 Mg Tablet, 7.5 MG PO QHS, #30 TAB Prov:MALACHI MARQUEZ MD 01/21/18 Insulin Glargine,Hum.rec.anlog (LANTUS SOLOSTAR) 100 Unit/1 Ml Insuln.pen, 10 UNIT SUBQ BID, #1 BOX Prov:MALACHI MARQUEZ MD 01/21/18 Ondansetron (ZOFRAN ODT) 4 Mg Tab.rapdis, 4 MG PO Q6H Y for NAUSEA/VOMITING, # 20 TAB.SILVIA Prov:THOMPSON GARDUNO DO 01/08/18 Blood Sugar Diagnostic (FREESTYLE LITE TEST STRIPS) 1 Each Strip, 1 EACH MC QID , #3 BOTTLE 11 Refills Prov:SHIV PAZ MD 10/27/17 Insulin Aspart (NOVOLOG FLEXPEN) 100 Unit/1 Ml Insuln.pen, 5-30 UNIT SQ TID, # 20 CART 11 Refills SLIDING SCALE Prov:SHIV PAZ MD 10/10/17 Cholecalciferol (Vitamin D3) (VITAMIN D3) 5,000 Unit Capsule, 5000 UNIT PO DAILY , #90 CAPSULE Prov:SHIV PAZ MD 09/25/17 Discontinued Reported Medications Emil's Wort (EMIL'S WORT) 300 Mg Capsule, 300 MG PO QDAY, CAPSULE 01/20/18 Discontinued Scripts Insulin Glargine,Hum.rec.anlog (LANTUS SOLOSTAR) 100 Unit/1 Ml Insuln.pen, 60 UNIT SQ DAILY, #1 BOX 11 Refills Prov:SHIV PAZ MD 11/20/17 Venous Thromboembolism Antithrombotics Is Pt On Any Antithrombotics?: No (JHON hose and ambulation) Problem Qualifiers (1) DM type 1 (diabetes mellitus, type 1): Diabetes mellitus complication status: with neurologic complications Diabetes mellitus complication detail: with unspecified neuropathy Qualified Codes: E10.40 - Type 1 diabetes mellitus with diabetic neuropathy, unspecified MALACHI MARQUEZ MD Jan 21, 2018 13:50
--- NOTE | 2018-01-21 15:07 | Hospitalist Depart ---
Discharge Summary Reason for Hosp/Final Diag: (1) Diabetic ketoacidosis Status: Acute Hospital Course & Plan: The patient appeared to have mild DKA with some associated dehydration. He was admitted for IV fluids, frequent glucose monitoring, insulin therapy and close monitoring of his electrolytes. It was felt that he was likely noncompliant with therapy given he had a very high HgbA1c and reported very high insulin requirement (90+ units of long acting insulin daily). He was placed on Lantus 10 units SQ BID and sliding scale. He did well on this regimen overall. (2) Dehydration Status: Acute Hospital Course & Plan: Resolved. He was given generous IV fluids. (3) DM type 1 (diabetes mellitus, type 1) Status: Chronic Hospital Course & Plan: Per review of EMR, HgbA1c was >14 in September and November. He was placed on Lantus 10 units bid here and did well. he required some short-acting insulin per sliding scale as well. (4) PTSD (post-traumatic stress disorder) Status: Chronic Hospital Course & Plan: It was felt that his psychiatric illness may be significantly impacting his diabetes management. Valerie Malagon from [facility] did see the patient. He refused to be admitted to [facility]. It was recommended he see a practitioner in the community for his mental health issues. He was started on Remeron 7.5mg at [facility] during his inpatient stay. (5) Depression Status: Chronic Hospital Course & Plan: Valerie Malagon, psychiatric nurse practitioner, did see the patient and recommended starting Remeron 7.5mg at HS. He will be discharged with an ongoing prescription. He is to see a mental health provider in the community for ongoing care. Departure Weight (Pounds): 112 Result Diagram: 01/21/18 0501/21/18 0555 Item Value Date Time Calcium Level 8.6 mg/dl 01/21/18 0555 Total Bilirubin 1.1 mg/dl 01/21/18 0555 Aspartate Amino Transf (AST/SGOT) 13 U/L 01/21/18 0555 Alanine Aminotransferase (ALT/SGPT) 27 U/L 01/21/18 0555 Alkaline Phosphatase 72 U/L 01/21/18 0555 Total Protein 5.2 gm/dl L 01/21/18 0555 Albumin 2.7 g/dl L 01/21/18 0555 Urine Opiates Screen Negative 01/20/18 1600 Urine Barbiturates Screen Negative 01/20/18 1600 Urine Phencyclidine Screen Negative 01/20/18 1600 Ur Tricyclic Antidepressants Screen Negative 01/20/18 1600 Urine Amphetamines Screen Negative 01/20/18 1600 Urine Benzodiazepines Screen Negative 01/20/18 1600 Urine Cocaine Screen Negative 01/20/18 1600 Urine Cannabinoids Screen Negative 01/20/18 1600 Urine Color Colorless 01/20/18342 Urine Clarity Clear 01/20/18342 Urine pH 5.0 pH 01/20/18 034 Urine Specific [place] 1.029 01/20/18342 Urine Protein Negative mg/dL 01/20/18342 Urine Glucose (UA) 500 mg/dL 01/20/18342 Urine Ketones 80 mg/dL H 01/20/18 034 Urine Blood Negative 01/20/18342 Urine Nitrite Negative 01/20/18342 Urine Bilirubin Negative 01/20/18342 Urine Urobilinogen Negative mg/dL 01/20/18342 Urine Leukocyte Esterase Negative 01/20/18342 Urine RBC None /HPF 01/20/18 034 Urine WBC None /HPF 01/20/18 034 Urine Squamous Epithelial Cells None /LPF 01/20/18 034 Urine Bacteria Negative /HPF 01/20/18 034 Urine Mucus None /HPF 01/20/18 034 Condition: Improved Discharge: Home, Self Care Time Spent: < 30 min Discharge Instructions Home Meds Active Scripts Insulin Lispro (HUMALOG) 100 Unit/1 Ml Vial, 1-5 UNIT SUBQ SS Y for SLIDING SCALE INSULIN, #1 BOX For glucose of 150-200 give 1 u 201-250 give 2 u 251-300 give 3 u 301-350 give 4 u > 350 give 5 u If glucose is 400 or greater, call your practitioner. Prov:MALACHI MARQUEZ MD 01/21/18 Mirtazapine (MIRTAZAPINE) 15 Mg Tablet, 7.5 MG PO QHS, #30 TAB Prov:MALACHI MARQUEZ MD 01/21/18 Insulin Glargine,Hum.rec.anlog (LANTUS SOLOSTAR) 100 Unit/1 Ml Insuln.pen, 10 UNIT SUBQ BID, #1 BOX Prov:MALACHI MARQUEZ MD 01/21/18 Ondansetron (ZOFRAN ODT) 4 Mg Tab.rapdis, 4 MG PO Q6H Y for NAUSEA/VOMITING, # 20 TAB.SILVIA Prov:THOMPSON GARDUNO DO 01/08/18 Blood Sugar Diagnostic (FREESTYLE LITE TEST STRIPS) 1 Each Strip, 1 EACH MC QID , #3 BOTTLE 11 Refills Prov:SHIV PAZ MD 10/27/17 Insulin Aspart (NOVOLOG FLEXPEN) 100 Unit/1 Ml Insuln.pen, 5-30 UNIT SQ TID, # 20 CART 11 Refills SLIDING SCALE Prov:SHIV PAZ MD 10/10/17 Cholecalciferol (Vitamin D3) (VITAMIN D3) 5,000 Unit Capsule, 5000 UNIT PO DAILY , #90 CAPSULE Prov:SHIV PAZ MD 09/25/17 Discontinued Reported Medications Emil's Wort (EMIL'S WORT) 300 Mg Capsule, 300 MG PO QDAY, CAPSULE 01/20/18 Discontinued Scripts Insulin Glargine,Hum.rec.anlog (LANTUS SOLOSTAR) 100 Unit/1 Ml Insuln.pen, 60 UNIT SQ DAILY, #1 BOX 11 Refills Prov:SHIV PAZ MD 11/20/17 Diet: Diabetic Activity: As Tolerated Copies to: [employer]IST[employer] MANAGER Venous Thromboembolism Antithrombotics Is Pt On Any Antithrombotics?: No (JHON hose and ambulation) Problem Qualifiers (1) DM type 1 (diabetes mellitus, type 1): Diabetes mellitus complication status: with neurologic complications Diabetes mellitus complication detail: with unspecified neuropathy Qualified Codes: E10.40 - Type 1 diabetes mellitus with diabetic neuropathy, unspecified MALACHI MARQUEZ MD Jan 21, 2018 15:07
== END 2018-01-21 14:50 | disposition home or self-care (01) | DRG 638 ==
LOC: ER 02:04 → MED 05:19
PROVIDERS: ADMIT Internal Medicine; ATTEND Internal Medicine
DX: E10.10 Type 1 diabetes mellitus with ketoacidosis without coma (principal); F33.2 Major depressive disorder, recurrent severe without psychotic features; E86.0 Dehydration; F43.12 Post-traumatic stress disorder, chronic; F41.8 Other specified anxiety disorders; E10.40 Type 1 diabetes mellitus with diabetic neuropathy, unspecified; R35.0 Frequency of micturition; R63.0 Anorexia; F17.210 Nicotine dependence, cigarettes, uncomplicated; F90.9 Attention-deficit hyperactivity disorder, unspecified type; G89.29 Other chronic pain; F60.9 Personality disorder, unspecified; X58.XXXA Exposure to other specified factors, initial encounter; Z79.4 Long term (current) use of insulin; Z91.5 Personal history of self-harm; Z62.810 Personal history of physical and sexual abuse in childhood
CPT/HCPCS: 36415; 36416; 80305; 81001; 82040; 82150; 82247; 82310; 82374; 82435; 82565; 82800; 82947; 82948; 83036; 83690; 84075; 84132; 84155; 84295; 84450; 84460; 84520; 85025; 96361; 96374; 96375; 99285; J1815; J2405; J3010; J7030

== ENCOUNTER 2018-02-18 14:33 | Inpatient (IN) | payer OTHER ==
[~2018-02-18] VITALS: Ht 177.8 cm; Wt 52.2 kg
[2018-02-18] VITALS (7 sets, daily range): BP systolic 106–128; BP diastolic 71–92
[~2018-02-18 14:33] MED LIST changes: +INSU100I30 SUBQ; +INSU100V24 SUBQ; +MIRT-22 PO; +ST.300CA17 PO
--- NOTE | 2018-02-18 14:48 | ER Report ---
History and Physical Time Seen By MD: 14:47 HPI/ROS CHIEF COMPLAINT: Chest pain, pain up into the left arm HISTORY OF PRESENT ILLNESS: 23-year-old male patient presents to emergency room with complaint of chest pain, pain in left arm. Patient states that this been going on for last couple days. Patient is a type I diabetic. He states that he' s been urinating more than normal. He states his blood sugars this morning were high at 400. He states that prior that they were running normally in the to 250s. Patient denies any shortness of breath, pain with activity. Patient has not taken any medication for this. He denies any fevers, chills, nausea, vomiting or diarrhea. REVIEW OF SYSTEMS: Respiratory: No cough, no dyspnea. Cardiovascular: As noted above Gastrointestinal: No vomiting, no abdominal pain. Musculoskeletal: No back pain. Allergies: Coded Allergies: No Known Drug Allergies (Unverified , 02/18/18) Home Meds Active Scripts Insulin Lispro 100 Un/Ml Vial (HUMALOG 100 U/ML VIAL) 100 Unit/1 Ml Vial, 1-5 UNIT SUBQ SS Y for SLIDING SCALE INSULIN, #1 BOX For glucose of 150-200 give 1 u 201-250 give 2 u 251-300 give 3 u 301-350 give 4 u > 350 give 5 u If glucose is 400 or greater, call your practitioner. Prov:MALACHI MARQUEZ MD 01/21/18 Mirtazapine (MIRTAZAPINE) 15 Mg Tablet, 7.5 MG PO QHS, #30 TAB Prov:MALACHI MARQUEZ MD 01/21/18 Insulin Glargine 100 Un/Ml Pen (LANTUS SOLOSTAR PEN) 100 Unit/1 Ml Insuln.pen, 10 UNIT SUBQ BID, #1 BOX Prov:MALACHI MARQUEZ MD 01/21/18 Blood Sugar Diagnostic (FREESTYLE LITE TEST STRIPS) 1 Each Strip, 1 EACH MC QID , #3 BOTTLE 11 Refills Prov:SHIV PAZ MD 10/27/17 Insulin Aspart 100 Un/Ml Pen (NOVOLOG FLEXPEN) 100 Unit/1 Ml Insuln.pen, 5-30 UNIT SQ TID, #20 CART 11 Refills SLIDING SCALE Prov:SHIV PAZ MD 10/10/17 Cholecalciferol (Vitamin D3) (VITAMIN D3) 5,000 Unit Capsule, 5000 UNIT PO DAILY , #90 CAPSULE Prov:SHIV PAZ MD 09/25/17 Discontinued Scripts Ondansetron (ZOFRAN ODT) 4 Mg Tab.rapdis, 4 MG PO Q6H Y for NAUSEA/VOMITING, # 20 TAB.SILVIA Prov:THOMPSON GARDUNO 01/08/18 Past Medical/Surgical History Patient has a past medical history of migraines, murmur, hypertension, type 1 diabetes, alcohol use, depression, PTSD, eating disorder, suicide attempt. Patient denies any surgical history. Reviewed Nurses Notes: Yes Hx Smoking: Yes Smoking Status: Current: Every Day Smoker Exposure to Second Hand Smoke?: Yes Hx Substance Use Disorder: No Hx Alcohol Use: Yes Constitutional Vital Sign - Last 24 Hours 02/18/18 02/18/18 02/18/18 02/18/18 14:35 14:42 14:48 15:00 Temp 87.8 Pulse 116 115 Resp 18 23 B/P (MAP) 147/97 147/97 (114) 155/101 (119) Pulse Ox 91 96 O2 Delivery Room Air 02/18/18 02/18/18 02/18/18 02/18/18 15:03 15:18 15:30 15:33 Pulse 115 115 108 Resp 19 12 42 B/P (MAP) 141/97 (112) Pulse Ox 98 99 98 02/18/18 02/18/18 02/18/18 02/18/18 15:48 15:53 16:00 16:08 Pulse 115 109 112 Resp 30 10 31 B/P (MAP) 130/97 (108) Pulse Ox 97 98 99 02/18/18 02/18/18 02/18/18 02/18/18 16:23 16:38 16:53 16:58 Pulse 110 112 104 106 Resp 33 27 28 16 Pulse Ox 99 98 98 100 02/18/18 02/18/18 02/18/18 02/18/18 17:00 17:03 17:08 17:13 Pulse 107 105 107 Resp 30 31 20 B/P (MAP) 130/91 (104) Pulse Ox 100 100 99 02/18/18 02/18/18 02/18/18 02/18/18 17:18 17:23 17:30 17:53 Pulse 109 102 104 Resp 20 29 25 B/P (MAP) 129/87 (101) Pulse Ox 97 100 99 02/18/18 18:00 B/P (MAP) 135/85 (102) Intake and Output 02/18/18 02/18/18 02/19/18 15:00 23:00 07:00 Intake Total 2000 ml Balance 2000 ml Physical Exam General Appearance: The patient is alert, has no immediate need for airway protection and no current signs of toxicity. ENT: Tympanic membranes are pearly-benton, auditory canals are patent, mucous membranes are moist. Respiratory: Chest is non tender, lungs are clear to auscultation. Patient is tachypneic. Cardiac: regular rate and rhythm Gastrointestinal: Abdomen is soft and non tender, no masses, bowel sounds normal. Musculoskeletal: Neck: Neck is supple and non tender. Extremities have full range of motion and are non tender. Skin: No rashes or lesions. DIFFERENTIAL DIAGNOSIS: After history and physical exam differential diagnosis was considered for chest pain including but not limited to myocardial ischemia, pericarditis pulmonary embolus, chest wall pain, pleural inflammation and pulmonary infectious causes. Included in the differential is diabetic ketoacidosis. Medical Decision Making Data Points Result Diagram: 02/18/18 1520 02/18/18 1520 Laboratory Hematology Test 02/18/18 14:45 02/18/18 15:20 02/18/18 16:53 02/18/18 16:55 Urine Color Colorless Urine Clarity Clear Urine pH 5.0 pH (4.8-9.5) Urine Specific [place] 1.026 Urine Protein Negative mg/dL (NEGATIVE) Urine Glucose (UA) 500 mg/dL (NEGATIVE) Urine Ketones 80 mg/dL (NEGATIVE) Urine Blood Negative (NEGATIVE) Urine Nitrite Negative (NEGATIVE) Urine Bilirubin Negative (NEGATIVE) Urine Urobilinogen Negative mg/dL (0.2-1.9) Urine Leukocyte Esterase Negative (NEGATIVE) Urine RBC <1 /HPF (0-2/HPF) Urine WBC None /HPF (0-5/HPF) Urine Squamous Epithelial Cells Few /LPF (</=FEW) Urine Bacteria Few /HPF (NONE-FEW) Urine Mucus None /HPF (NONE-FEW) Red Blood Count 5.49 M/uL (4.00-5.60) Mean Corpuscular Volume 83.8 fL (80.0-96.0) Mean Corpuscular Hemoglobin 28.3 pg (26.0-33.0) Mean Corpuscular Hemoglobin Concent 33.8 g/dL (32.0-36.0) Red Cell Distribution Width 13.3 % (11.5-14.5) Mean Platelet Volume 7.3 fL (7.2-11.1) Neutrophils (%) (Auto) 56.6 % (39.4-72.5) Lymphocytes (%) (Auto) 36.0 % (17.6-49.6) Monocytes (%) (Auto) 6.1 % (4.1-12.4) Eosinophils (%) (Auto) 0.6 % (0.4-6.7) Basophils (%) (Auto) 0.7 % (0.3-1.4) Nucleated RBC Relative Count (auto) 0.0 /100WBC Neutrophils # (Auto) 4.4 K/uL (2.0-7.4) Lymphocytes # (Auto) 2.8 K/uL (1.3-3.6) Monocytes # (Auto) 0.5 K/uL (0.3-1.0) Eosinophils # (Auto) 0.0 K/uL (0.0-0.5) Basophils # (Auto) 0.1 K/uL (0.0-0.1) Nucleated RBC Absolute Count (auto) 0.00 K/uL Sodium Level 136 mmol/L (137-145) Potassium Level 4.3 mmol/L (3.5-5.0) Chloride Level 100 mmol/L (98-107) Carbon Dioxide Level 9 mmol/L (22-30) Blood Urea Nitrogen 14 mg/dl (9-21) Creatinine 0.60 mg/dl (0.66-1.25) Glomerular Filtration Rate Calc > 60.0 Random Glucose 543 mg/dl (75-110) Osmolality 317 mOSM/K (275-295) Calcium Level 9.1 mg/dl (8.4-10.2) Total Bilirubin 2.6 mg/dl (0.2-1.3) Aspartate Amino Transf (AST/SGOT) 26 U/L (0-35) Alanine Aminotransferase (ALT/SGPT) 35 U/L (0-56) Alkaline Phosphatase 156 U/L (0-126) Troponin I < 0.012 ng/ml Total Protein 7.3 gm/dl (6.3-8.2) Albumin 4.4 g/dl (3.5-5.0) Acetone, Qualitative Small Whole Blood Glucose 436 mg/DL (75-110) Blood Gas Puncture Site Left radial Blood Gas Patient Temperature 97.8 DEGREES Arterial Blood pH 7.27 (7.35-7.45) Arterial Blood Partial Pressure CO2 < 25 mmHg (32-37) Arterial Blood Partial Pressure O2 69 mmHg (60-80) Arterial Blood HCO3 10 mmol/L (20-26) Arterial Blood Oxygen Saturation 92 % (92-100) Arterial Blood Base Excess -18.0 mmol/L Bryson Test Acceptable Oxygen Liters/Minute Room air Chemistry Test 02/18/18 14:45 02/18/18 15:20 02/18/18 16:53 02/18/18 16:55 Urine Color Colorless Urine Clarity Clear Urine pH 5.0 pH (4.8-9.5) Urine Specific [place] 1.026 Urine Protein Negative mg/dL (NEGATIVE) Urine Glucose (UA) 500 mg/dL (NEGATIVE) Urine Ketones 80 mg/dL (NEGATIVE) Urine Blood Negative (NEGATIVE) Urine Nitrite Negative (NEGATIVE) Urine Bilirubin Negative (NEGATIVE) Urine Urobilinogen Negative mg/dL (0.2-1.9) Urine Leukocyte Esterase Negative (NEGATIVE) Urine RBC <1 /HPF (0-2/HPF) Urine WBC None /HPF (0-5/HPF) Urine Squamous Epithelial Cells Few /LPF (</=FEW) Urine Bacteria Few /HPF (NONE-FEW) Urine Mucus None /HPF (NONE-FEW) White Blood Count 7.7 k/uL (4.5-11.0) Red Blood Count 5.49 M/uL (4.00-5.60) Hemoglobin 15.6 g/dL (14.0-18.0) Hematocrit 46.0 % (42.0-52.0) Mean Corpuscular Volume 83.8 fL (80.0-96.0) Mean Corpuscular Hemoglobin 28.3 pg (26.0-33.0) Mean Corpuscular Hemoglobin Concent 33.8 g/dL (32.0-36.0) Red Cell Distribution Width 13.3 % (11.5-14.5) Platelet Count 343 K/uL (150-450) Mean Platelet Volume 7.3 fL (7.2-11.1) Neutrophils (%) (Auto) 56.6 % (39.4-72.5) Lymphocytes (%) (Auto) 36.0 % (17.6-49.6) Monocytes (%) (Auto) 6.1 % (4.1-12.4) Eosinophils (%) (Auto) 0.6 % (0.4-6.7) Basophils (%) (Auto) 0.7 % (0.3-1.4) Nucleated RBC Relative Count (auto) 0.0 /100WBC Neutrophils # (Auto) 4.4 K/uL (2.0-7.4) Lymphocytes # (Auto) 2.8 K/uL (1.3-3.6) Monocytes # (Auto) 0.5 K/uL (0.3-1.0) Eosinophils # (Auto) 0.0 K/uL (0.0-0.5) Basophils # (Auto) 0.1 K/uL (0.0-0.1) Nucleated RBC Absolute Count (auto) 0.00 K/uL Glomerular Filtration Rate Calc > 60.0 Osmolality 317 mOSM/K (275-295) Calcium Level 9.1 mg/dl (8.4-10.2) Total Bilirubin 2.6 mg/dl (0.2-1.3) Aspartate Amino Transf (AST/SGOT) 26 U/L (0-35) Alanine Aminotransferase (ALT/SGPT) 35 U/L (0-56) Alkaline Phosphatase 156 U/L (0-126) Troponin I < 0.012 ng/ml Total Protein 7.3 gm/dl (6.3-8.2) Albumin 4.4 g/dl (3.5-5.0) Acetone, Qualitative Small Whole Blood Glucose 436 mg/DL (75-110) Blood Gas Puncture Site Left radial Blood Gas Patient Temperature 97.8 DEGREES Arterial Blood pH 7.27 (7.35-7.45) Arterial Blood Partial Pressure CO2 < 25 mmHg (32-37) Arterial Blood Partial Pressure O2 69 mmHg (60-80) Arterial Blood HCO3 10 mmol/L (20-26) Arterial Blood Oxygen Saturation 92 % (92-100) Arterial Blood Base Excess -18.0 mmol/L Bryson Test Acceptable Oxygen Liters/Minute Room air Toxicology Test 02/18/18 15:20 Acetone, Qualitative Small Urinalysis Test 02/18/18 14:45 Urine Color Colorless Urine Clarity Clear Urine pH 5.0 pH (4.8-9.5) Urine Specific [place] 1.026 Urine Protein Negative mg/dL (NEGATIVE) Urine Glucose (UA) 500 mg/dL (NEGATIVE) Urine Ketones 80 mg/dL (NEGATIVE) Urine Blood Negative (NEGATIVE) Urine Nitrite Negative (NEGATIVE) Urine Bilirubin Negative (NEGATIVE) Urine Urobilinogen Negative mg/dL (0.2-1.9) Urine Leukocyte Esterase Negative (NEGATIVE) Urine RBC <1 /HPF (0-2/HPF) Urine WBC None /HPF (0-5/HPF) Urine Squamous Epithelial Cells Few /LPF (</=FEW) Urine Bacteria Few /HPF (NONE-FEW) Urine Mucus None /HPF (NONE-FEW) EKG/Imaging EKG Interpretation 12 lead EKG: Rhythm: Sinus tachycardia with ventricular rate of 112 bpm Carpenter: normal QRS: normal ST segments: normal Imaging CHEST PA AND LAT History: Chest pain FINDINGS: Comparison studies: December 15, 2017 Tubes and Lines: None. Lungs and pleura: Well aerated. No evidence of focal consolidation or pleural effusions. Mediastinum: normal. Cardiac silhouette: normal . Osseous structures: Unremarkable for age . IMPRESSION: Normal chest Report Dictated By: Caleb Wills MD at 02/18/2018 4:42 PM Report E-Signed By: Caleb Wills MD at 02/18/2018 4:43 PM ED Course/Re-evaluation ED Course Patient was administered exam room, history and physical were obtained. Differential diagnoses were considered. On examination patient had no tenderness , however he was tachypneic. An IV was started, CBC, CMP, osmolality, urinalysis , acetone, ABG, EKG and troponin were done. EKG showed a sinus tachycardia with ventricular rate of 112 bpm. Patient had a small acetone, osmolality was elevated at 327, ABG showed a bicarbonate of 10. CBC was unremarkable, CMP showed a CO2 of 9, blood sugar of 543. Troponin was negative. Chest x-ray was done which was negative, patient received a liter of normal saline, 10 units of IV insulin. That did bring his blood sugar down to 428. He received another liter of fluid. After that time he was 328. He states he still feeling ill. I discussed the case with Dr. Paz, hospitalist who agreed to accept the patient for admission with a diagnosis of DKA. I discussed this with the patient who verbalized understanding and agreement with plan. Decision to Disposition Date: Feb 18, 2018 Decision to Disposition Time: 17:50 Depart Departure Latest Vital Signs Vital Signs Date Time Temp Pulse Resp B/P (MAP) Pulse Ox O2 Delivery O2 Flow Rate FiO2 02/18/18 18:00 135/85 (102) 02/18/18 17:53 104 25 99 02/18/18 14:35 87.8 Room Air Impression: Primary Impression: Diabetic ketoacidosis Additional Impression: DM type 1 (diabetes mellitus, type 1) Condition: Condition Unchanged Disposition: Admitted from ER Referrals: SHIV PAZ MD (PCP) Problem Qualifiers Primary Impression: Diabetic ketoacidosis Diabetes mellitus type: type 1 Diabetes mellitus complication detail: without coma Qualified Codes: E10.10 - Type 1 diabetes mellitus with ketoacidosis without coma Additional Impression: DM type 1 (diabetes mellitus, type 1) Diabetes mellitus complication status: with ketoacidosis Diabetes mellitus complication detail: without coma Qualified Codes: E10.10 - Type 1 diabetes mellitus with ketoacidosis without coma ANJELICA JOEL Feb 18, 2018 14:48
[2018-02-18] MEDS ORDERED: NS(*) 0.9% 1000 ML BAG 1,000 ML IV ONE ×3 (15:18→17:40)
--- NOTE | 2018-02-18 15:29 | EKG ---
FACILITY: [facility] PATIENT NAME: PHOEBE TORRES : [id number] MR: [id number] V: [id number] EXAM DATE: ORDERING PHYSICIAN: ANJELICA JOEL TECHNOLOGIST: MOHIT Test Reason : CP Blood Pressure : / mmHG Vent. Rate : 112 BPM Atrial Rate : 112 BPM P-R Int : 128 ms QRS Dur : 080 ms QT Int : 316 ms P-R-T Axes : 052 048 059 degrees QTc Int : 431 ms Sinus tachycardia Otherwise normal ECG No previous ECGs available Confirmed by BIRD DONALDSON ([id number]) on 02/18/2018 10:01:00 PM Referred By: DAPHNEY Confirmed By:BIRD DONALDSON
[2018-02-18 15:49] LABS: PLATELET COUNT, AUTOMATED 343 K/uL (150-450)
[2018-02-18] MEDS ORDERED: INSU HUM REG 100 U/ML(ER ONLY) 10 ML VIAL IV ONE (15:55)
--- NOTE | 2018-02-18 16:46 | RADIOLOGY IMAGING REPORT ---
FACILITY: [facility] PATIENT NAME: Zak Wynn : 1995 MR: [id number] V: [id number] EXAM DATE: ORDERING PHYSICIAN: ANJELICA JOEL TECHNOLOGIST: Location: [facility] [place] Patient: Zak Wynn : 1995 Visit/Account:[id number] Date of Sevice: 02/18/2018 CHEST PA AND LAT History: Chest pain FINDINGS: Comparison studies: December 15, 2017 Tubes and Lines: None. Lungs and pleura: Well aerated. No evidence of focal consolidation or pleural effusions. Mediastinum: normal. Cardiac silhouette: normal . Osseous structures: Unremarkable for age . IMPRESSION: Normal chest Report Dictated By: Caleb Wills MD at 02/18/2018 4:42 PM Report E-Signed By: Caleb Wills MD at 02/18/2018 4:43 PM WSN:[id number]
[2018-02-18] MEDS ORDERED: INS HUM REG* 100 U/ML(ER ONLY) 100 UNIT in NS(*) 0.9% 100 ML BAG 99 ML IV SCH (17:40)
[2018-02-18] MEDS ORDERED: KCL/NS* 20 MEQ/1000 ML PREMIX 1,000 ML IV PRN (19:20)
--- NOTE | 2018-02-18 19:34 | History & Physical ---
History of Present Illness Chief Complaint DKA History of Present Illness This patient presented to the emergency room complaining of chest pain, shortness of breath, and increasing glucose levels. He reports that his symptoms started about 24hrs ago and have been progressing. History Problems: (1) DM type 1 (diabetes mellitus, type 1) Status: Chronic (2) PTSD (post-traumatic stress disorder) Status: Chronic Home Meds Active Scripts Insulin Lispro 100 Un/Ml Vial (HUMALOG 100 U/ML VIAL) 100 Unit/1 Ml Vial, 1-5 UNIT SUBQ SS Y for SLIDING SCALE INSULIN, #1 BOX For glucose of 150-200 give 1 u 201-250 give 2 u 251-300 give 3 u 301-350 give 4 u > 350 give 5 u If glucose is 400 or greater, call your practitioner. Prov:MALACHI MARQUEZ MD 01/21/18 Mirtazapine (MIRTAZAPINE) 15 Mg Tablet, 7.5 MG PO QHS, #30 TAB Prov:MALACHI MARQUEZ MD 01/21/18 Insulin Glargine 100 Un/Ml Pen (LANTUS SOLOSTAR PEN) 100 Unit/1 Ml Insuln.pen, 10 UNIT SUBQ BID, #1 BOX Prov:MALACHI MARQUEZ MD 01/21/18 Blood Sugar Diagnostic (FREESTYLE LITE TEST STRIPS) 1 Each Strip, 1 EACH MC QID , #3 BOTTLE 11 Refills Prov:SHIV PAZ MD 10/27/17 Insulin Aspart 100 Un/Ml Pen (NOVOLOG FLEXPEN) 100 Unit/1 Ml Insuln.pen, 5-30 UNIT SQ TID, #20 CART 11 Refills SLIDING SCALE Prov:SHIV PAZ MD 10/10/17 Cholecalciferol (Vitamin D3) (VITAMIN D3) 5,000 Unit Capsule, 5000 UNIT PO DAILY , #90 CAPSULE Prov:SHIV PAZ MD 09/25/17 Discontinued Scripts Ondansetron (ZOFRAN ODT) 4 Mg Tab.rapdis, 4 MG PO Q6H Y for NAUSEA/VOMITING, # 20 TAB.SILVIA Prov:THOMPSON GARDUNO DO 01/08/18 Allergies: Coded Allergies: No Known Drug Allergies (Unverified , 02/18/18) Patient History: FH: ADHD (attention deficit hyperactivity disorder) MOTHER FH: CABG (coronary artery bypass surgery) FATHER, Age:62 FH: depression MOTHER FH: heart disease FATHER, Age:62 FH: hypertension FATHER, Age:62 MOTHER FH: myocardial infarction FATHER, Age:62, Onset:50's - 60 Hx Smoking: Yes (cigars and pipe tobacco since 15) Smoking Status: Current: Every Day Smoker Exposure to Second Hand Smoke?: Yes Caffeine Intake: Tea, Soda Caffeine/Cups Per Day: 3 - 4 Hx Alcohol Use: Yes Hx Substance Use Disorder: No Social Drug Use: Former Social Drugs: Marijuana Review of Systems All Systems Reviewed/Normal: Yes, Except as Noted Cardiovascular: Chest Pain Respiratory: Shortness of Breath Exam Vital Signs Vital Signs Date Time Temp Pulse Resp B/P (MAP) Pulse Ox O2 Delivery O2 Flow Rate FiO2 02/18/18 18:45 104 12 99 02/18/18 18:30 118/82 (94) 02/18/18 14:35 87.8 Room Air Neuro: No Gross deficits Eyes: PERRLA Cardiovascular: Regular Rate and Rhythm Respiratory: Clear to Auscultation GI: Abd Soft and Non-Tender Extremities: No Edema Integumentary: No Cyanosis Medical Decision Making Data Points Result Diagram: 02/18/18 1520 02/18/18 1520 Item Value Date Time Arterial Blood pH 7.27 L 02/18/18 1655 Assessment and Plan Problems: (1) DKA, type 1 Status: Acute Assessment & Plan: He did present with an elevated glucose and acidosis. He has been started on IV insulin and fluid resuscitation. His sugars are already decreasing on arrival to the ICU. We have requested a chemistry panel to follow his acidosis. Copies to: SHIV PAZ MD Venous Thromboembolism Antithrombotics Is Pt On Any Antithrombotics?: No Exam Sepsis Risk: No Definite Risk BIRD DONALDSON DO Feb 18, 2018 19:34
[2018-02-18] MEDS: KCL/D1/2NS 20 MEQ 1000 ML 1,000 ML IV PRN ×2 (19:40→23:52)
[2018-02-19] VITALS (11 sets, daily range): BP systolic 102–126; BP diastolic 64–89; Ht 177.8 cm; Wt 52.2 kg
[2018-02-19] MEDS ORDERED: INSULIN HUM LISPRO 100 UN/ML 3 ML VIAL SUBQ PRN (08:10)
[2018-02-19] MEDS ORDERED: INS GLAR 100 UN/ML (ER ONLY) 100 UNIT/ML SUBQ SCH (09:00)
[2018-02-19] MEDS ORDERED: INSULIN GLARGINE 100 U/ML 3 ML PEN SUBQ SCH (09:00)
[2018-02-19] MEDS ORDERED: INSU100I35 SQ (12:20)
[2018-02-19] MEDS ORDERED: MIRT7.5T2 PO (12:20)
[2018-02-19] MEDS ORDERED: LANI SUBQ (12:20)
--- NOTE | 2018-02-19 13:39 | Hospitalist Progress Note ---
Subjective Progress Notes Subjective The patient denies new complaints. Physical Exam Vital Signs Date Time Temp Pulse Resp B/P (MAP) Pulse Ox O2 Delivery O2 Flow Rate FiO2 02/19/18 11:55 98 Room Air 02/19/18 10:13 76 02/19/18 08:00 20 115/85 (95) 02/19/18 07:43 97.9 Intake and Output 02/20/18 07:00 Intake Total 1289 ml Balance 1289 ml Intake Oral 320 ml IV Total 969 ml # Voids 1 General Appearance: Alert, Awake, No Acute Distress, Afebrile Neuro: No Gross deficits Cardiovascular: Regular Rate and Rhythm Respiratory: Clear to Auscultation GI: Soft and Non-Tender Extremities: Warm, Perfused Psych: Appropriate Mood & Affect Result Diagram: 02/18/18 1520 02/19/18 0607 Assessment and Plan Problems: (1) DKA, type 1 Status: Acute Assessment & Plan: He did present with an elevated glucose and acidosis. He was started on IV insulin and fluid resuscitation. His sugars were already decreasing on arrival to the ICU. His acidosis has improved. Will place him back on his usual Lantus this am with SSI and restart a diabetic diet. If he does well with breakfast and lunch, could DC this afternoon Time Spent on Plan of Care: < 30 min Exam Sepsis Risk: No Definite Risk MALACHI MARQUEZ MD Feb 19, 2018 13:39
--- NOTE | 2018-02-19 14:14 | Hospitalist Depart ---
Discharge Summary Reason for Hosp/Final Diag: (1) DKA, type 1 Status: Acute Hospital Course & Plan: He did present with an elevated glucose and acidosis after drinking alcohol in celebration of his 23st birthday. He was started on IV insulin and fluid resuscitation. His sugars were already decreasing on arrival to the ICU. His acidosis improved. He was placed back on his usual Lantus with SSI and restarted on a diabetic diet. He ate breakfast and lunch without difficulty and he was then discharged to home. (2) Malnutrition Status: Chronic Departure Weight (Pounds): 115 Result Diagram: 02/18/18 1520 02/19/18 0607 Condition: Improved Discharge: Home, Self Care Time Spent: < 30 min Discharge Instructions Home Meds Active Scripts Blood Sugar Diagnostic (FREESTYLE LITE TEST STRIPS) 1 Each Strip, 1 EACH MC QID , #3 BOTTLE 11 Refills Prov:FATMATA PAZ MD 10/27/17 Reported Medications Insulin Glargine (LANTUS) 100 Unit/Ml Soln, 20 UNIT SUBQ BID, ML 02/19/18 Insulin Aspart 100 Un/Ml Pen (NOVOLOG FLEXPEN) 100 Unit/1 Ml Insuln.pen, 2-12 UNIT SQ ACHS, ML 02/19/18 Mirtazapine (MIRTAZAPINE) 7.5 Mg Tablet, 7.5 MG PO QHS 02/19/18 Discontinued Scripts Insulin Lispro 100 Un/Ml Vial (HUMALOG 100 U/ML VIAL) 100 Unit/1 Ml Vial, 1-5 UNIT SUBQ SS Y for SLIDING SCALE INSULIN, #1 BOX For glucose of 150-200 give 1 u 201-250 give 2 u 251-300 give 3 u 301-350 give 4 u > 350 give 5 u If glucose is 400 or greater, call your practitioner. Prov:MALACHI MARQUEZ MD 01/21/18 Mirtazapine (MIRTAZAPINE) 15 Mg Tablet, 7.5 MG PO QHS, #30 TAB Prov:MALACHI MARQUEZ MD 01/21/18 Insulin Glargine 100 Un/Ml Pen (LANTUS SOLOSTAR PEN) 100 Unit/1 Ml Insuln.pen, 10 UNIT SUBQ BID, #1 BOX Prov:MALACHI MARQUEZ MD 01/21/18 Insulin Aspart 100 Un/Ml Pen (NOVOLOG FLEXPEN) 100 Unit/1 Ml Insuln.pen, 5-30 UNIT SQ TID, #20 CART 11 Refills SLIDING SCALE Prov:FATMATA PAZ MD 10/10/17 Cholecalciferol (Vitamin D3) (VITAMIN D3) 5,000 Unit Capsule, 5000 UNIT PO DAILY , #90 CAPSULE Prov:FATMATA PAZ MD 09/25/17 Ondansetron (ZOFRAN ODT) 4 Mg Tab.rapdis, 4 MG PO Q6H Y for NAUSEA/VOMITING, # 20 TAB.SILVIA Prov:THOMPSON GARDUNO DO 01/08/18 Follow up Referrals: Internal Medicine - In One Day @ [facility]Primary with Fatmata Paz Md Diet: Diabetic Activity: As Tolerated Copies to: FATMATA PAZ MD Venous Thromboembolism Antithrombotics Is Pt On Any Antithrombotics?: No Problem Qualifiers (1) Malnutrition: Malnutrition type: protein-calorie malnutrition Protein-calorie malnutrition severity: severe Qualified Codes: E43 - Unspecified severe protein-calorie malnutrition MALACHI MARQUEZ MD Feb 19, 2018 14:14
--- NOTE | 2018-02-19 14:52 | Medical Nutrition Therapy ---
Nutrition Anthropometrics Height (Inches): 70.00 Height (Calculated Centimeters: 177.495252 Weight (Pounds): 115 Weight (Calculated Kilograms): 52.163 BMI Calculated: 16.50 Leonel Nutrition Score: Adequate Leonel Nutrition Risk Score: 19 Dietary Referral Nutrition Risk Factors: Unplanned Loss >10lbs, Recent Nutrition Impact Nutrition Risk Comment: pt reports poor appetite and is unable to hold food down. Physical Findings Physical Appearance: Underweight BMI<19 Skin Appearance Skin Appearance: Edema Edema Location Modifier: Edema Location: Type of Edema: Degree of Edema: Gastrointestinal Symptoms GI Symtoms: Tube Present: Bowel Sounds: Recent Bowel Pattern: Stool Characteristics: Nutrition/Food History Alcohol Use: Currently Amount of Alcohol Used: Pt states that he just had his 23st birthday and over consumed alcohol. Nutritional Diagnosis Nutritional Risk Acuity 2: %IBW 75-80%, DKA Nutritional Risk Acuity 3: Nausea, Weight Loss Past Medical History: T1DM, depression, DKA, PTSD Nutritional Acuity: 2-Moderate Nutrition Diagnosis: Increased Nutrient Needs Nutrition Etiology: Inadeq. Food/Sunshine Intake Nutrition Problem/Etiology/Sym: Increased nutrient needs related to inadequate food/beverage intake as evidence by severe protein calorie malnutrition. Energy Requirement: 1850 (kcal/day- [place] St. Jeor RMR (1530) 1.1 AF & 1.1 IF ) Protein Requirement: 104 (g protein per day - 2.0 g/kg) Fluid Requirement: 1560 (mL/day- 30 mL/kg) Diet Type: Diet as Tolerated MARCIE/REG Nutrition Intervention: Cont diet as ordered, Encourage intake Nutrition Monitoring & Eval Nutrition Goals: Eat 90-100% Meal RD Patient Assessment Time: [address] Assessment Type: RD Assessment Patient Nutrition Acuity: 2-Moderate Follow Up Date: Feb 25, 2018 Nutritional Comment: 02/19 Pt admitted in T1DM DKA. Pt with a significant past medical history for T1DM and PTSD. Pt was previously admitted in DKA on 01/20/18. Glucose remains elevated from 188 - 248. BUN 7, creat 0.40, sodium 135 and low BMI. Pt assessed and meets qualifications for severe protein calorie malnutrition due to the following: severe muscle wasting in clavicles, shoulders, arms and legs; BMI of 16.5; current wt of 52 kg is 74% of IBW. VERONA LANDA Feb 19, 2018 14:50
[2018-02-19] MEDS ORDERED: INSULIN HUM REG 100 UN/ML 3 ML 100 UNIT in NS(*) 0.9% 100 ML BAG 99 ML IV SCH (17:30)
[2018-02-20] MEDS ORDERED: INFLUENZA VIRUS VAC 0.5 ML SYR IM ONLY ONE (09:00)
== END 2018-02-19 15:50 | disposition home or self-care (01) | DRG 637 ==
LOC: ER 14:56 → ICU 18:59
PROVIDERS: ADMIT Family Medicine; ATTEND Family Medicine
DX: E10.10 Type 1 diabetes mellitus with ketoacidosis without coma (principal); E43 Unspecified severe protein-calorie malnutrition; Z68.1 Body mass index [BMI] 19.9 or less, adult; I47.2 Ventricular tachycardia; I10 Essential (primary) hypertension; F32.9 Major depressive disorder, single episode, unspecified; F43.12 Post-traumatic stress disorder, chronic; F50.9 Eating disorder, unspecified; F17.210 Nicotine dependence, cigarettes, uncomplicated; Z91.5 Personal history of self-harm; Z79.4 Long term (current) use of insulin
CPT/HCPCS: 36415; 36416; 36600; 71046; 81001; 82009; 82040; 82247; 82310; 82374; 82435; 82565; 82803; 82947; 82948; 83930; 84075; 84132; 84155; 84295; 84450; 84460; 84484; 84520; 85025; 93005; 99285; J1815; J3480; J7030; J7050

== ENCOUNTER 2018-03-13 18:51 | Inpatient (IN) | payer SELFPAY ==
[~2018-03-13] VITALS: Ht 175.3 cm; Wt 51.8 kg
[~2018-03-13 18:51] MED LIST changes: +MIRT7.5T2 PO
[2018-03-13] MEDS ORDERED: NS(*) 0.9% 1000 ML BAG 1,000 ML IV ONE ×3 (18:55→20:20)
[2018-03-13] MEDS ORDERED: ONDANSETRON 4 MG/2 ML VIAL IVP ONE (18:55)
--- NOTE | 2018-03-13 18:55 | ER Report ---
History and Physical Time Seen By MD: 18:51 HPI/ROS CHIEF COMPLAINT: DKA HISTORY OF PRESENT ILLNESS: 23-year-old male presents stating he is in DKA. He is insulin-dependent diabetic. He states he woke up on the floor this morning. Hypoglycemic. Patient states she's been feeling ill for 2-3 hours. He's been having dry heaves for the last hour. He denies recent illness. He reports he's been suffering left-sided neck pain radiating down his arm. He reports no traumatic injury. He notes no fever or chills. He denies diarrhea or dysuria. Fingerstick glucose by nurses was noted to be high on the glucometer. REVIEW OF SYSTEMS: Respiratory: No cough, no dyspnea. Cardiovascular: No chest pain, no palpitations. Gastrointestinal: As above Musculoskeletal: No back pain. Allergies: Coded Allergies: No Known Drug Allergies (Unverified , 03/13/18) Home Meds Active Scripts Blood Sugar Diagnostic (FREESTYLE LITE TEST STRIPS) 1 Each Strip, 1 EACH MC QID , #3 BOTTLE 11 Refills Prov:SHIV PAZ MD 10/27/17 Reported Medications Insulin Glargine (LANTUS) 100 Unit/Ml Soln, 20 UNIT SUBQ BID, ML 02/19/18 Insulin Aspart 100 Un/Ml Pen (NOVOLOG FLEXPEN) 100 Unit/1 Ml Insuln.pen, 2-12 UNIT SQ ACHS, ML 02/19/18 Mirtazapine (MIRTAZAPINE) 7.5 Mg Tablet, 7.5 MG PO QHS 02/19/18 Past Medical/Surgical History PTSD, diabetes type I, frequent exacerbations of DKA Reviewed Nurses Notes: Yes Old Medical Records Reviewed: Yes Hx Smoking: Yes (cigars and pipe tobacco since 15) Smoking Status: Current: Every Day Smoker Exposure to Second Hand Smoke?: Yes Hx Substance Use Disorder: No Hx Alcohol Use: Yes Constitutional Vital Sign - Last 24 Hours 03/13/18 03/13/18 03/13/18 03/13/18 18:57 19:00 19:06 19:21 Temp 97.8 Pulse 123 124 113 Resp 18 B/P (MAP) 129/88 129/88 (102) Pulse Ox 94 99 O2 Delivery Room Air 03/13/18 03/13/18 03/13/18 03/13/18 19:30 19:36 19:51 20:00 Pulse 120 125 B/P (MAP) 131/80 (97) 121/70 (87) Pulse Ox 100 100 03/13/18 03/13/18 03/13/18 03/13/18 20:05 20:20 20:30 20:35 Pulse 131 132 132 B/P (MAP) 136/93 (107) Pulse Ox 98 98 98 03/13/18 20:50 Pulse 131 Resp 64 Pulse Ox 96 Physical Exam General Appearance: The patient is alert, has no immediate need for airway protection and no current signs of toxicity. Vital signs stable, hyperventilating. Appears dehydrated. Patient appears to have significant weight loss HEENT: Pupils equal and round no injection. TMs normal, oropharynx with dry mucous membranes, no erythema Respiratory: Chest is non tender, lungs are clear to auscultation. Cardiac: regular rate and rhythm Gastrointestinal: Abdomen is soft and non tender, no masses, bowel sounds normal. Musculoskeletal: Neck: Neck is supple and non tender. No lymphadenopathy Extremities have full range of motion and are non tender. Skin: No rashes or lesions. DIFFERENTIAL DIAGNOSIS: After history and physical exam differential diagnosis was considered for hyperglycemia, DKA, dehydration, renal failure, infection, gastroenteritis, food poisoning. Medical Decision Making Data Points Result Diagram: 03/13/18194003/13/18 2325 Laboratory Hematology Test 03/13/18 19:41 Red Blood Count 5.21 M/uL (4.00-5.60) Mean Corpuscular Volume 86.0 fL (80.0-96.0) Mean Corpuscular Hemoglobin 28.5 pg (26.0-33.0) Mean Corpuscular Hemoglobin Concent 33.2 g/dL (32.0-36.0) Red Cell Distribution Width 13.5 % (11.5-14.5) Mean Platelet Volume 7.9 fL (7.2-11.1) Neutrophils (%) (Auto) 83.1 % (39.4-72.5) Lymphocytes (%) (Auto) 12.4 % (17.6-49.6) Monocytes (%) (Auto) 3.8 % (4.1-12.4) Eosinophils (%) (Auto) 0.0 % (0.4-6.7) Basophils (%) (Auto) 0.7 % (0.3-1.4) Nucleated RBC Relative Count (auto) 0.0 /100WBC Neutrophils # (Auto) 6.8 K/uL (2.0-7.4) Lymphocytes # (Auto) 1.0 K/uL (1.3-3.6) Monocytes # (Auto) 0.3 K/uL (0.3-1.0) Eosinophils # (Auto) 0.0 K/uL (0.0-0.5) Basophils # (Auto) 0.1 K/uL (0.0-0.1) Nucleated RBC Absolute Count (auto) 0.00 K/uL Blood Gas Patient Temperature Unknown DEGREES Venous Blood pH 7.16 (7.31-7.41) Venous Blood Partial Pressure CO2 30 mmHg Venous Blood Partial Pressure O2 42 mmHg Venous Blood HCO3 11 mmol/L Venous Blood Oxygen Saturation 65 % Venous Blood Base Excess -18 mmol/L Oxygen Liters/Minute Unknown Osmolality 320 mOSM/K (275-295) Lactate 3.3 mmol/L (0.7-2.1) Total Bilirubin 1.6 mg/dl (0.2-1.3) Aspartate Amino Transf (AST/SGOT) 20 U/L (0-35) Alanine Aminotransferase (ALT/SGPT) 28 U/L (0-56) Alkaline Phosphatase 167 U/L (0-126) Total Protein 6.4 gm/dl (6.3-8.2) Albumin 4.2 g/dl (3.5-5.0) Acetone, Qualitative Moderate Chemistry Test 03/13/18 19:41 White Blood Count 8.1 k/uL (4.5-11.0) Red Blood Count 5.21 M/uL (4.00-5.60) Hemoglobin 14.9 g/dL (14.0-18.0) Hematocrit 44.9 % (42.0-52.0) Mean Corpuscular Volume 86.0 fL (80.0-96.0) Mean Corpuscular Hemoglobin 28.5 pg (26.0-33.0) Mean Corpuscular Hemoglobin Concent 33.2 g/dL (32.0-36.0) Red Cell Distribution Width 13.5 % (11.5-14.5) Platelet Count 283 K/uL (150-450) Mean Platelet Volume 7.9 fL (7.2-11.1) Neutrophils (%) (Auto) 83.1 % (39.4-72.5) Lymphocytes (%) (Auto) 12.4 % (17.6-49.6) Monocytes (%) (Auto) 3.8 % (4.1-12.4) Eosinophils (%) (Auto) 0.0 % (0.4-6.7) Basophils (%) (Auto) 0.7 % (0.3-1.4) Nucleated RBC Relative Count (auto) 0.0 /100WBC Neutrophils # (Auto) 6.8 K/uL (2.0-7.4) Lymphocytes # (Auto) 1.0 K/uL (1.3-3.6) Monocytes # (Auto) 0.3 K/uL (0.3-1.0) Eosinophils # (Auto) 0.0 K/uL (0.0-0.5) Basophils # (Auto) 0.1 K/uL (0.0-0.1) Nucleated RBC Absolute Count (auto) 0.00 K/uL Blood Gas Patient Temperature Unknown DEGREES Venous Blood pH 7.16 (7.31-7.41) Venous Blood Partial Pressure CO2 30 mmHg Venous Blood Partial Pressure O2 42 mmHg Venous Blood HCO3 11 mmol/L Venous Blood Oxygen Saturation 65 % Venous Blood Base Excess -18 mmol/L Oxygen Liters/Minute Unknown Osmolality 320 mOSM/K (275-295) Lactate 3.3 mmol/L (0.7-2.1) Total Bilirubin 1.6 mg/dl (0.2-1.3) Aspartate Amino Transf (AST/SGOT) 20 U/L (0-35) Alanine Aminotransferase (ALT/SGPT) 28 U/L (0-56) Alkaline Phosphatase 167 U/L (0-126) Total Protein 6.4 gm/dl (6.3-8.2) Albumin 4.2 g/dl (3.5-5.0) Acetone, Qualitative Moderate Toxicology Test 03/13/18 19:41 Acetone, Qualitative Moderate ED Course/Re-evaluation Clinical Indication for ER IV: Hydration, IV Access ED Course Patient was admitted to an examination room. H&P was done. The differential diagnoses was considered. Patient with appearance of DKA. Patient with hyperventilation and a fruity smell to his breath. He's been vomiting for several hours. He is aggressively hydrated with 2 L of normal saline. 10 units regular insulin is administered. Diagnostic laboratory studies are sent off. His glucose returns at 660. His bicarbonate is down to 10. His venous pH is 7.16. Patient was started on insulin drip at 5 units per hour. 03/13/2018 8:06:58 pm case discussed with Dr. Bj Medellin hospitalist on-call , who accepts the patient for admission to ICU for treatment of his DKA Decision to Disposition Date: March 13, 2018 Decision to Disposition Time: 20:06 Depart Departure Latest Vital Signs Vital Signs Date Time Temp Pulse Resp B/P (MAP) Pulse Ox O2 Delivery O2 Flow Rate FiO2 03/13/18 20:50 131 64 96 03/13/18 20:30 136/93 (107) 03/13/18 18:57 97.8 Room Air Impression: Primary Impression: DKA, type 1 Additional Impression: Posttraumatic stress disorder Condition: Improved Disposition: Admitted from ER Referrals: SHIV PAZ MD (PCP) Problem Qualifiers Primary Impression: DKA, type 1 Diabetes mellitus complication detail: without coma Qualified Codes: E10.10 - Type 1 diabetes mellitus with ketoacidosis without coma THOMPSON GARDUNO DO March 13, 2018 18:55
[2018-03-13 19:48] LABS: PLATELET COUNT, AUTOMATED 283 K/uL (150-450)
[2018-03-13] MEDS ORDERED: INSU HUM REG 100 U/ML(ER ONLY) 10 ML VIAL IVP ONE (19:55)
[2018-03-13] MEDS ORDERED: INSULIN HUM REG 100 UN/ML 3 ML 100 UNIT in NS(*) 0.9% 100 ML BAG 100 ML IV SCH (20:17)
[2018-03-13] MEDS ORDERED: INSULIN HUM REG 100 UN/ML 3 ML 100 UNIT in NS(*) 0.9% 100 ML BAG 99 ML IV SCH ×2 (20:35→20:41)
[2018-03-13] MEDS ORDERED: KCL/NS* 20 MEQ/1000 ML PREMIX 1,000 ML IV SCH (20:45)
[2018-03-13] MEDS ORDERED: PROMETHAZINE 25 MG/ML 1 ML AMP IVP PRN (20:55)
[2018-03-13] MEDS ORDERED: MIRTAZAPINE 15 MG TAB PO SCH (21:00)
--- NOTE | 2018-03-13 21:27 | History & Physical ---
History of Present Illness History of Present Illness 23yo male with a h/o T1DM and frequent DKA who came to the ER for dry heaves and "fruity smelling" breath. He was in H for DKA from 01/21- and . He reports for the last couple of mornings he has been having glucoses in the 50 's. He even has cut back his evening Lantus to 15 units from 20. This morning he found himself on the floor and had to crawl to get food to increase his glucose. Today, his roommate noted that his breath was "fruity smelling" and he was dry heaving. He denies giving himself any nighttime glucose. He admits to only eating 1-2 meals a day. He denies dysuria, fevers, or cough. He has had some left sided neck pain and has noted swollen lymph nodes for the last couple of weeks. He denies suicidal ideation. History Problems: (1) DM type 1 (diabetes mellitus, type 1) Status: Chronic (2) PTSD (post-traumatic stress disorder) Status: Chronic (3) Malnutrition Status: Chronic Home Meds Active Scripts Blood Sugar Diagnostic (FREESTYLE LITE TEST STRIPS) 1 Each Strip, 1 EACH MC QID , #3 BOTTLE 11 Refills Prov:SHIV PAZ MD 10/27/17 Reported Medications Insulin Glargine (LANTUS) 100 Unit/Ml Soln, 20 UNIT SUBQ BID, ML 02/19/18 Insulin Aspart 100 Un/Ml Pen (NOVOLOG FLEXPEN) 100 Unit/1 Ml Insuln.pen, 2-12 UNIT SQ ACHS, ML 02/19/18 Mirtazapine (MIRTAZAPINE) 7.5 Mg Tablet, 7.5 MG PO QHS 02/19/18 Allergies: Coded Allergies: No Known Drug Allergies (Unverified , 03/13/18) Patient History: FH: ADHD (attention deficit hyperactivity disorder) MOTHER FH: CABG (coronary artery bypass surgery) FATHER, Age:62 FH: depression MOTHER FH: heart disease FATHER, Age:62 FH: hypertension FATHER, Age:62 MOTHER FH: myocardial infarction FATHER, Age:62, Onset:50's - 60 Hx Smoking: Yes (cigars and pipe tobacco since 15) Smoking Status: Current: Every Day Smoker Exposure to Second Hand Smoke?: Yes Caffeine Intake: Tea, Soda Caffeine/Cups Per Day: 3 - 4 Hx Alcohol Use: Yes Hx Substance Use Disorder: No Social Drug Use: Former Social Drugs: Marijuana Review of Systems All Systems Reviewed/Normal: Yes, Except as Noted Exam Vital Signs Vital Signs Date Time Temp Pulse Resp B/P (MAP) Pulse Ox O2 Delivery O2 Flow Rate FiO2 03/13/18 20:00 121/70 (87) 03/13/18 19:51 125 100 03/13/18 18:57 97.8 18 Room Air General Appearance: Alert, Awake, Other (mildly agitated) Neuro: No Gross deficits (Speech is a bit pressured, but will stop talking when others speak. Anxious. Answers questions appropriately. He knows why he is in the hospital and the events of the day. Very accusatory of his mother and previous medical providers) Cardiovascular: Regular Rate and Rhythm Respiratory: Clear to Auscultation GI: Abd Soft and Non-Tender : No CVA Tenderness Lymph: Other (He has a firm left post-cervical lymph node that is smooth, rubbery, movable. No other palpable lymph nodes along the cervical chain and no supraclavicular nodes palpable on the left.) Extremities: No Edema Integumentary: No Jaundice, No Cyanosis Medical Decision Making Data Points Result Diagram: 03/13/18194003/13/181940 Item Value Date Time Venous Blood pH 7.16 L 03/13/181940 Venous Blood Partial Pressure CO2 30 mmHg 03/13/181940 Venous Blood Partial Pressure O2 42 mmHg 03/13/181940 Venous Blood HCO3 11 mmol/L 03/13/181940 Venous Blood Oxygen Saturation 65 % 03/13/181940 Lactate 3.3 mmol/L H 03/13/181940 Osmolality 320 mOSM/K H 03/13/181940 Calcium Level 9.1 mg/dl 03/13/181940 Total Bilirubin 1.6 mg/dl H 03/13/181940 Aspartate Amino Transf (AST/SGOT) 20 U/L 03/13/181940 Alanine Aminotransferase (ALT/SGPT) 28 U/L 03/13/181940 Alkaline Phosphatase 167 U/L H 03/13/181940 Sodium Level 132 mmol/L L 03/13/181940 Potassium Level 4.9 mmol/L 03/13/181940 Chloride Level 94 mmol/L L 03/13/181940 Carbon Dioxide Level 10 mmol/L *L 03/13/181940 Blood Urea Nitrogen 22 mg/dl H 03/13/181940 Creatinine 0.70 mg/dl 03/13/181940 Random Glucose 660 mg/dl *H 03/13/181940 Neutrophils (%) (Auto) 83.1 % H 03/13/181940 Lymphocytes (%) (Auto) 12.4 % L 03/13/181940 Eosinophils (%) (Auto) 0.0 % L 03/13/181940 Monocytes (%) (Auto) 3.8 % L 03/13/181940 Acetone, Qualitative Moderate 03/13/181940 Assessment and Plan Problems: (1) Diabetic ketoacidosis Status: Acute Assessment & Plan: He presented with dry heaves and fruity breath. He has an AG of 28. He is tachycardic. No focal symptoms or findings consistent with an infectious source. He reports having a low glucose the last couple of mornings and decreasing his evening Lantus to 15 units. This is his 3rd admission in 2 months. He will be admitted to the ICU, continued on the insulin drip, and hydrated. (2) Posttraumatic stress disorder Status: Acute Assessment & Plan: He was seen by Valerie Malagon 2 months ago and was started on mirtazapine. He ran out of it a couple of weeks ago. Will restart tonight. He denies SI. (3) Neck pain Status: Acute Assessment & Plan: He reports left neck pain for the last couple of weeks that radiates to his chest. He does have a <1cm posterior cervical lymph node, but no other lymph nodes palpable including supraclavicular on the left. Will follow. (4) Malnutrition Status: Chronic Assessment & Plan: Long standing issue that is worsening. Will check a prealbumin. Venous Thromboembolism Antithrombotics Is Pt On Any Antithrombotics?: No Exam Sepsis Risk: No Definite Risk ASHLEY LUZ MD March 13, 2018 21:27
[2018-03-13 22:00] VITALS: BP 127/74
[2018-03-13] MEDS: D5 1/2 NS(*) 1000 ML BAG 1,000 ML IV PRN (22:47)
[2018-03-13 23:00] VITALS: BP 109/68
[2018-03-13 23:30] VITALS: BP 122/74
[2018-03-14] VITALS (19 sets, daily range): BP systolic 104–125; BP diastolic 70–94; Ht 175.3 cm; Wt 51.8 kg
[2018-03-14] MEDS: D5 1/2 NS(*) 1000 ML BAG 1,000 ML IV PRN (05:00)
[2018-03-14 05:36] LABS: PLATELET COUNT, AUTOMATED 284 K/uL (150-450)
[2018-03-14] MEDS: INSULIN HUM LISPRO 100 UN/ML 3 ML VIAL SUBQ PRN ×2 (08:27→11:49)
[2018-03-14] MEDS ORDERED: ENOXAPARIN 40 MG/0.4ML SYR SC SCH (09:00)
[2018-03-14] MEDS ORDERED: INSULIN GLARGINE 100 U/ML 3 ML PEN SUBQ SCH (09:00)
--- NOTE | 2018-03-14 10:00 | Hospitalist Progress Note ---
Subjective Progress Notes Subjective This patient was admitted for DKA. He had no acute events overnight. Patient Complains of: Cardiovascular: No: Chest Pain Respiratory: No: Shortness of Breath Physical Exam Vital Signs Date Time Temp Pulse Resp B/P (MAP) Pulse Ox O2 Delivery O2 Flow Rate FiO2 03/14/18 09:16 98 03/14/18 09:00 20 114/76 (89) 94 Room Air 03/14/18 07:00 97.8 Intake and Output 03/15/18 07:00 Intake Total 775.9 ml Balance 775.9 ml Intake Oral 480 ml IV Total 295.9 ml # Voids 1 Cardiovascular: Regular Rate and Rhythm Respiratory: Clear to Auscultation Result Diagram: 03/14/1852003/14/18520 Assessment and Plan Problems: (1) Diabetic ketoacidosis Status: Acute Assessment & Plan: He was admitted for diabetic ketoacidosis with a venous pH of 7.1 and a glucose >600. He received IV fluids and an insulin infusion overnight. His acidosis has resolved and his sugars are under better control. We have converted him to SQ insulin and advanced his diet. (2) Posttraumatic stress disorder Status: Acute Assessment & Plan: He was seen by Valerie Malagon 2 months ago and was started on mirtazapine. He ran out of it a couple of weeks ago. It was restarted on this admission. (3) Neck pain Status: Acute Assessment & Plan: He reports left neck pain for the last couple of weeks that radiates to his chest. He does have a <1cm posterior cervical lymph node, but no other lymph nodes palpable including supraclavicular on the left. (4) Malnutrition Status: Chronic Assessment & Plan: This is a long standing issue that is worsening. Exam Sepsis Risk: No Definite Risk BIRD DONALDSON DO March 14, 2018 10:00
[2018-03-14] MEDS ORDERED: INSU100I35 SQ (13:58)
[2018-03-14] MEDS ORDERED: LANI SUBQ (13:58)
[2018-03-14] MEDS ORDERED: MIRT7.5T2 PO (13:58)
[2018-03-14] MEDS ORDERED: BLOO1STR16 MC (13:58)
--- NOTE | 2018-03-14 14:00 | Hospitalist Depart ---
Discharge Summary Reason for Hosp/Final Diag: (1) Diabetic ketoacidosis Status: Acute Hospital Course & Plan: He was admitted for diabetic ketoacidosis with a venous pH of 7.1 and a glucose >600. He received IV fluids and an insulin infusion overnight. His acidosis has resolved and his sugars are under better control. We have converted him back to SQ insulin and advanced his diet. (2) Posttraumatic stress disorder Status: Acute Hospital Course & Plan: He was seen by Valerie Malagon 2 months ago and was started on mirtazapine. He ran out of it a couple of weeks ago. It was restarted on this admission. (3) Neck pain Status: Acute Hospital Course & Plan: He reports left neck pain for the last couple of weeks that radiates to his chest. He does have a <1cm posterior cervical lymph node, but no other lymph nodes palpable including supraclavicular on the left. (4) Malnutrition Status: Chronic Hospital Course & Plan: This is a long standing issue that is worsening. Departure Latest Vital Signs Vital Signs 03/14/18 03/14/18 03/14/18 11:00 13:00 13:55 Temp 98.1 Pulse 102 Resp 17 B/P (MAP) 124/90 (101) Pulse Ox 96 O2 Delivery Room Air Weight (Pounds): 114 Weight (Ounces): 2.0 Result Diagram: 03/14/1852003/14/18520 Condition: Improved Discharge: Home, Self Care Discharge Instructions Home Meds Active Scripts Insulin Glargine (LANTUS) 100 Unit/Ml Soln, 20 UNIT SUBQ BID, #3 ML Prov:BIRD DONALDSON DO 03/14/18 Insulin Aspart 100 Un/Ml Pen (NOVOLOG FLEXPEN) 100 Unit/1 Ml Insuln.pen, 2-12 UNIT SQ ACHS, #3 ML Prov:BIRD DONALDSON DO 03/14/18 Mirtazapine (MIRTAZAPINE) 7.5 Mg Tablet, 7.5 MG PO QHS, #30 TAB Prov:BIRD DONALDSON DO 03/14/18 Blood Sugar Diagnostic (FREESTYLE LITE TEST STRIPS) 1 Each Strip, 1 EACH MC QID , #3 BOTTLE 11 Refills Prov:BIRD DONALDSON DO 03/14/18 Diet: Diabetic Activity: As Tolerated Copies to: SHIV PAZ MD Venous Thromboembolism Antithrombotics Is Pt On Any Antithrombotics?: No BIRD DONALDSON DO March 14, 2018 14:00
[2018-03-15] MEDS ORDERED: INFLUENZA VIRUS VAC 0.5 ML SYR IM ONLY ONE (20:45)
== END 2018-03-14 14:40 | disposition home or self-care (01) | DRG 638 ==
LOC: ER 18:56 → ICU 20:57
PROVIDERS: ADMIT Internal Medicine; ATTEND Internal Medicine
DX: E10.10 Type 1 diabetes mellitus with ketoacidosis without coma (principal); E46 Unspecified protein-calorie malnutrition; Z68.1 Body mass index [BMI] 19.9 or less, adult; M54.2 Cervicalgia; F17.210 Nicotine dependence, cigarettes, uncomplicated; F43.12 Post-traumatic stress disorder, chronic; Z79.4 Long term (current) use of insulin
CPT/HCPCS: 36415; 36416; 82009; 82040; 82247; 82310; 82374; 82435; 82565; 82803; 82947; 82948; 83605; 83930; 84075; 84132; 84134; 84155; 84295; 84450; 84460; 84520; 85025; 99285; J1650; J1815; J2405; J7030; J7050